=== PATIENT | male | born 1960 | race Caucasian/White ===

== ENCOUNTER 2016-06-26 22:50 | Inpatient (IN) | payer OTHER, MEDICAID ==
[2016-06-26] MEDS ORDERED: NS 1,000 ML IV ONE (22:53)
[2016-06-26] MEDS ORDERED: MAGNESIUM SULF 2 GM/WATER 50 ML IV ONE (22:54)
[2016-06-26] MEDS ORDERED: methylPREDNISolone SOD SUCC 125 MG/2 ML VIAL IVP ONE (22:54)
[2016-06-26] MEDS ORDERED: IPRATROPIUM/ALBUTEROL 3 ML DEYVIAL IH ONE (22:54)
[2016-06-26] MEDS ORDERED: ONDANSETRON 4 MG/2 ML VIAL ONE ×2 (22:54→22:55)
[2016-06-26] MEDS ORDERED: IPRATROPIUM/ALBUTEROL 3 ML DEYVIAL ONE (22:54)
--- NOTE | 2016-06-26 22:58 | EDPHY ---
H & P HPI/ROS: HPI CHIEF COMPLAINT: Respiratory distress, room air saturation 50% HISTORY OF PRESENT ILLNESS: This patient very pleasant 56-year-old male he does have significant past medical history for COPD, wears 4 L nasal cannula, he presents to the emergency room by EMS in respiratory distress. Upon arrival he is breathing 40 times per minute, he has 1 word dyspnea, very little air movement, his oxygen saturation on 4 L nasal cannula is 80%. Room air sat 50%. Denies chest pain. States that he got short of breath earlier today. When EMS arrived he was in respiratory distress tripod position, 50% room air sad. In route they gave him multiple breathing treatments and brought him here to the emergency room. denies fever. does endorse nausea with vomiting. Past Medical History:COPD on 4 L nasal cannula, and states COPD, diastolic heart failure, diabetes, schizophrenia, liver cirrhosis, hypoxic respiratory failure, hypercarbic respiratory failure Social History: Denies daily use of drugs alcohol tobacco products Family History: noncontributory ROS REVIEW OF SYSTEMS: A comprehensive 10 point review of systems is otherwise negative aside from elements mentioned in the history of present illness. Exam Constitutional Respiratory distress, triage nursing summary reviewed, vital signs reviewed, awake/alert. (oxygen saturation noted to be 80%) Eyes normal conjunctivae and sclera, EOMI, PERRLA. HENT normal inspection, atraumatic, moist mucus membranes, no epistaxis, neck supple/ no meningismus, no raccoon eyes. Respiratory Severely diminished breath sounds bilaterally, little air movement, respiratory distress, tachypneic in the 40s, Cardiovascular rate normal, regular rhythm, no murmur, no edema, distal pulses normal. Gastrointestinal soft, non-tender, no rebound, no guarding, normal bowel sounds, no distension, no pulsatile mass. Genitourinary no CVA tenderness. Musculoskeletal no midline vertebral tenderness, full range of motion, no calf swelling, no tenderness of extremities, no meningismus, good pulses, neurovascularly intact. Skin pink, warm, & dry, no rash, skin atraumatic. Neurologic awake, alert and oriented x 3, AAOx3, moves all 4 extremities equally, motor intact, sensory intact, CN II-XII intact, normal cerebellar, normal vision, normal speech. Psychiatric normal mood/affect. Heme/Lymph/Immune no lymphadenopathy. Differential Diagnosis: Includes but is not limited to in a particular order, COPD exacerbation, pneumonia, pulmonary embolism, reactive airway disease Medical Decision Making: This patient had an IV established obtain blood work, patient had a chest x-ray, patient be placed on full face BiPAP will obtain EEG , lactic acid, blood cultures, he received fluid bolus. He received Solu-Medrol , IV Levaquin, IV magnesium will closely monitor for respiratory failure. Re-evaluation: Critical Care: Total Critical Care Time Spent Managing this Patient: 65 minutes Minutes. This time was spent Exclusively with this patient. This Care was exclusive of procedures. The Organ System/life at risk was respiratory This Patient was in Critical Condition because impending respiratory failure, respiratory distress 2359: re-evaluation at this time this patient is resting comfortably. He feels much better after BiPAP, and breathing treatment. He has received Solu- Medrol by EMS, magnesium by Mauricio, IV Levaquin. His chest x-ray been reviewed shows no acute pneumonia. Blood work reviewed, ABG reviewed he does have a pCO2 of 73 however his pH is 7.27. Most likely acute acidosis from elevated pCO2 however when I trend his pCO2 he is much higher. He is much more comfortable now after on BiPAP and multiple nebs. He would like to come off BiPAP I will attempt to wean him off BiPAP and placed on 4 L nasal cannula which is his home O2 baseline. Spoke with Dr. Powell the hospitalist service who agrees to admit this patient. Given the patient's renal BiPAP I feel that he can go to a PCU bed. EKG interpretation by me on record in [facility]. Impression time of EKG is 08/09/1941, this is sinus tachycardia rate of 98, there is right bundle- branch block present. PVC present. Otherwise I do not appreciate acute ischemia. Specifically no ST elevation. 2359: At this time this patient is hemodynamically stable in no acute distress. Safe for admission to PCU. Source: Patient, EMS - Medical/Surgical History Hx Asthma: No Hx Chronic Respiratory Disease: Yes Hx Diabetes: Yes Hx Cardiac Disease: Yes Hx Renal Disease: No Hx Cirrhosis: No Hx Alcoholism: No Hx HIV/AIDS: No Hx Splenectomy or Spleen Trauma: No Other PMH: EMPHYSEMA. PARANOID SCHIZAPHRENIC. DM II. HTN, CHF - Social History Smoking Status: Former smoker Constitutional: Initial Vital Signs O2 Sat (%) 95 02/04/17 22:53 O2 Delivery Mode Simple Mask O2 (L/minute) 6 Allergies/Adverse Reactions: No Known Allergies Allergy (Verified 03/25/16 10:49) Home Medications: Medication Instructions Recorded Furosemide [Lasix 20 MG (*)] 20 mg PO DAILY 10/30/15 Lisinopril [Zestril 20 mg (*)] 20 mg PO DAILY@12 10/30/15 metFORMIN HCL [Glucophage 500 mg 500 mg PO BIDMEAL 10/30/15 (*)] Albuterol [Ventolin Hfa Inhaler] 2 puffs IH Q4 PRN 12/04/15 Fluphenazine Decanoate 12.5mg 12.5 mg IM Q14D 12/05/15 Aspirin [Aspirin 81mg (*)] 81 mg PO DAILY #30 tab 03/29/16 Budesonide/Formoterol 160/4.5 2 puffs IH BID #1 mdi 03/29/16 [Symbicort 160-4.5 Mcg Inh (*)] predniSONE 40 mg PO DAILY #21 tablet 03/29/16 Medical Decision Making - Data Points Laboratory Results: Laboratory Results 06/26/16 23:15 06/26/16 06/26/16 23:20 23:15 WBC 13.53 H 10^3/uL (3.80-9.50) RBC 4.50 10^6/uL (4.40-6.38) Hgb 14.1 g/dL (13.7-17.5) Hct 42.5 % (40.0-51.0) MCV 94.4 fL (81.5-99.8) MCH 31.3 pg (27.9-34.1) MCHC 33.2 g/dL (32.4-36.7) RDW 12.7 % (11.5-15.2) Plt Count 244 10^3/uL (150-400) MPV 9.6 fL (8.7-11.7) Neut % (Auto) 73.7 % (39.3-74.2) Lymph % (Auto) 14.5 L % (15.0-45.0) Wise % (Auto) 6.5 % (4.5-13.0) Eos % (Auto) 3.0 % (0.6-7.6) Baso % (Auto) 1.4 % (0.3-1.7) Nucleat RBC Rel Count 0.0 % (0.0-0.2) Absolute Neuts (auto) 9.98 H 10^3/uL (1.70-6.50) Absolute Lymphs (auto) 1.96 10^3/uL (1.00-3.00) Absolute Monos (auto) 0.88 H 10^3/uL (0.30-0.80) Absolute Eos (auto) 0.40 10^3/uL (0.03-0.40) Absolute Basos (auto) 0.19 H 10^3/uL (0.02-0.10) Absolute Nucleated RBC 0.00 10^3/uL (0-0.01) Immature Gran % 0.9 % (0.0-1.1) Immature Gran # 0.12 H 10^3/uL (0.00-0.10) PT 13.2 SEC (12.0-15.0) INR 1.01 (0.83-1.16) APTT 24.9 SEC (23.0-38.0) Puncture Site RIGHT RADIAL Patient Temperature 37.0 DEGREES pCO2 73 H* mmHg (34-38) pO2 197 H mmHg (65-75) Total CO2 35 H mEq/L (23-27) ABG pH 7.27 L (7.35-7.45) ABG PO2/FiO2 Ratio 197 RATIO ABG O2 Saturation 99 H % (92-95) ABG Base Excess 3.3 H mEq/L (-2.5-2.5) VBG Lactic Acid 1.0 mmol/L (0.7-2.1) O2 Concentration % 100 % (0-100) Expiratory Pressure 7 Inspiratory Pressure 14 Mode BiPAP YES Sodium Pending Potassium Pending Chloride Pending Carbon Dioxide Pending Bicarbonate 32 H mEq/L (22-26) Anion Gap Pending BUN Pending Creatinine Pending Estimated GFR Pending Glucose Pending Calcium Pending Magnesium Pending Total Bilirubin Pending Conjugated Bilirubin Pending Unconjugated Bilirubin Pending AST Pending ALT Pending Alkaline Phosphatase Pending Creatine Kinase Pending CK-MB (CK-2) Fraction Pending Troponin I Pending NT-Pro-B Natriuret Pep Pending Total Protein Pending Albumin Pending Lipase Pending Medications Given: Discontinued Medications Albuterol/Ipratropium (Duoneb) 3 ml IH EDNOW ONE Stop: 06/26/16 22:55 Last Admin: 06/26/16 23:18 Dose: 6 ml Sodium Chloride (Ns) 1,000 mls @ 0 mls/hr IV ONCE ONE PRN Reason: As Directed Stop: 06/26/16 22:54 Last Admin: 06/26/16 23:16 Dose: 1,000 mls Magnesium Sulfate (Magnesium Sulf 2 Gm (Premix)) 50 mls @ 50 mls/hr IV EDNOW ONE Stop: 06/26/16 23:53 Last Admin: 06/26/16 23:30 Dose: 50 mls Methylprednisolone Sodium Succinate (Solu-Medrol) 125 mg IVP EDNOW ONE Stop: 06/26/16 22:55 Last Admin: 06/26/16 23:17 Dose: Not Given Ondansetron HCl (Zofran) 4 mg IVP EDNOW ONE Stop: 06/26/16 23:17 Last Admin: 06/26/16 23:17 Dose: 4 mg Departure - Departure Disposition: [facility] Inpatient Acute Clinical Impression: Respiratory distress Condition: Fair
[2016-06-26] MEDS ORDERED: ONDANSETRON 4 MG/2 ML VIAL IVP ONE (23:16)
--- NOTE | 2016-06-26 23:25 | DX ---
Portable AP Upright Chest, 2 Views, at 11:07 p.m. Clinical History: 56-year-old male in the ED with chest pain. Comparison Studies: Chest radiography dated March 26, 2016, and CT angiography of the chest dated 2015. Findings: The lungs remain hyperexpanded. Oxygen tubing is in place. The cardiac and mediastinal silh ouette is normal in size. There are old healed right 9th and 10th rib fracture deformities. There is no focal infiltrate, pleural effusion, peripheral interstitial edema, or pneumothorax. Impression: No acute abnormality, or substantial change from March 26, 2016.
[2016-06-26 23:32] LABS: BASE EXCESS 3.3 mEq/L (-2.5-2.5); BICARBONATE 32 mEq/L (22-26); MEASURED OXYGEN SATURATION 99 % (92-95); PO2 197 mmHg (65-75); TCO2 35 mEq/L (23-27)
[2016-06-26 23:36] LABS: % IMMATURE GRANULYOCYTES 0.9 % (0.0-1.1); ABSOLUTE IMMATURE GRANULOCYTES 0.12 10^3/uL (0.00-0.10); ADD DIFF? NO; ADD MORPH? NO; ADD SCAN? NO; ATYPICAL LYMPHOCYTE FLAG 0 (0-99); FRAGMENT RBC FLAG 0 (0-99); HEMATOCRIT 42.5 % (40.0-51.0); HEMOGLOBIN 14.1 g/dL (13.7-17.5); LEFT SHIFT FLG 0 (0-99); LIPEMIA HEMOLYSIS FLAG 80 (0-99); MEAN CELL HEMOGLOBIN 31.3 pg (27.9-34.1); MEAN CELL HEMOGLOBIN CONCENTR. 33.2 g/dL (32.4-36.7); MEAN CELL VOLUME 94.4 fL (81.5-99.8); MEAN PLATELET VOLUME 9.6 fL (8.7-11.7); PLATELET CLUMPS FLAG 10 (0-99); PLATELET COUNT 244 10^3/uL (150-400); RED CELL DISTRIBUTION WIDTH 12.7 % (11.5-15.2)
[2016-06-26 23:38] LABS: BIPAP YES; PCO2 73 mmHg (34-38)
[2016-06-26 23:39] LABS: EXP PRESSURE 7; INSP PRESSURE 14; O2 CONCENTRATIION 100 % (0-100); OXYGEN BLEED 50; P/F RATIO 197 RATIO
--- NOTE | 2016-06-26 23:44 | CPEKG ---
Heart Rate: 98 RR Interval: 612 P-R Interval: 176 QRSD Interval: 138 QT Interval: 400 QTC Interval: 511 P Maxton: 81 QRS Maxton: -82 T Wave Maxton: 87 EKG Severity - ABNORMAL ECG - EKG Impression: SINUS TACHYCARDIA EKG Impression: VENTRICULAR PREMATURE COMPLEX EKG Impression: NONSPECIFIC IVCD WITH LAD Electronically Signed By: Gwyn Kebede 27-Jun-2016 22:22:51
[2016-06-26 23:54] LABS: APTT 24.9 SEC (23.0-38.0); INR 1.01 (0.83-1.16); PROTIME(PATIENT) 13.2 SEC (12.0-15.0)
[2016-06-27 00:28] LABS: ALANINE AMINOTRANSFERASE 49 IU/L (21-72); ALBUMIN 4.1 g/dL (3.5-5.0); ALKALINE PHOSPHATASE 55 IU/L (38-126); ANION GAP 12 mEq/L (8-16); ASPARTATE AMINOTRANSFERASE 32 IU/L (17-59); BILIRUBIN,TOTAL 0.6 mg/dL (0.1-1.4); BILIRUBIN-CONJUGATED 0.4 mg/dL (0.0-0.5); BILIRUBIN-UNCONJUGATED 0.2 mg/dL (0.0-1.1); CALCIUM 9.6 mg/dL (8.5-10.4); CARBON DIOXIDE 36 mEq/l (22-31); CHLORIDE 96 mEq/L (97-110); CREATININE 0.7 mg/dL (0.7-1.3); GLOMERULAR FILTRATION RATE > 60; GLUCOSE 253 mg/dL (70-100); MAGNESIUM 1.6 mg/dL (1.6-2.3); POTASSIUM 4.5 mEq/L (3.5-5.2); SODIUM 144 mEq/L (134-144); TOTAL PROTEIN 7.1 g/dL (6.3-8.2)
[2016-06-27 00:40] LABS: TROPONIN I 0.018 ng/mL (0-0.034)
[2016-06-27] MEDS ORDERED: TEMAZEPAM 15 MG CAP PO PRN (00:43)
[2016-06-27] MEDS ORDERED: ACETAMINOPHEN 325 MG TAB PO PRN (00:43)
[2016-06-27] MEDS ORDERED: oxyCODONE IR 5 MG TAB PO PRN (00:43)
[2016-06-27] MEDS ORDERED: ONDANSETRON 4 MG/2 ML VIAL IVP PRN (00:43)
[2016-06-27] MEDS ORDERED: ALBUTEROL 3 ML DEYVIAL IH PRN (00:43)
[2016-06-27] MEDS ORDERED: ONDANSETRON DISINTEGRATING 4 MG TAB PO PRN (00:43)
[2016-06-27] MEDS ORDERED: PROMETHAZINE HCL 25 MG/ML INJ IVP PRN (00:43)
[2016-06-27 00:48] LABS: CK-MB INTERPRETATION POSITIVE (NEGATIVE)
[2016-06-27] MEDS ORDERED: D50W 25 GM/50 ML SYR IVP PRN (00:54)
--- NOTE | 2016-06-27 02:01 | GHP ---
[f rep st] HISTORY AND PHYSICAL DATE OF ADMISSION: 06/26/2016 DATE OF EVALUATION: 06/26/2016 CHIEF COMPLAINT: Shortness of breath. HISTORY OF PRESENT ILLNESS: This is a 56-year-old man with a history of severe oxygen-dependent COPD, who presents with shortness of breath. This started acutely today. He has had no cough. He has no chest pain. This feels like his previous COPD exacerbation. He was initially found by EMS. He had a room air saturation of 50%. In the emergency department, he has had breathing treatments and feels much better than when he initially presented. PAST MEDICAL/SURGICAL HISTORY: 1. Diastolic congestive heart failure with preserved EF. 2. COPD with chronic hypoxic and hypercarbic respiratory failure, on 4 L of oxygen at baseline. 3. Diabetes mellitus type 2. 4. Hypertension. 5. Cirrhosis. 6. Schizophrenia. 7. Hospitalizations for acute encephalopathy, and respiratory failure. MEDICATIONS: Please see medication reconciliation. ALLERGIES: None. SOCIAL HISTORY: He tells me he is not smoking. He lives independently. FAMILY HISTORY: No COPD. REVIEW OF SYSTEMS: A 10-point review of systems is conducted and is negative, except per HPI. PHYSICAL EXAM: VITAL SIGNS: Blood pressure 186/121, heart rate is 100, respiration rate about 25, saturating at 96% on 3 L via simple mask when I am seeing him, temperature is 36.6. GENERAL: The patient is a pleasant man, lying on his side, somewhat withdrawn, who appears in mild respiratory distress. HEENT: Shows him to have a simple mask on. CARDIOVASCULAR: A regular rate and rhythm. No murmurs, rubs, or gallops. PULMONARY: Shows him to be in mild respiratory distress. He is speaking in a few-word sentences. He has markedly diminished breath sounds bilaterally, more diminished on the left than the right. ABDOMEN: Soft, nontender, nondistended. SKIN: No rash. : No Guy. NEUROLOGIC: Shows him to be alert and oriented x3. He is moving all extremities. PSYCHIATRIC: Normal mood and affect. LABS: White count is 13.5. INR is 1. ABG shows him to have a pH of 7.27, pCO2 of 73, pO2 of 197. Chemistry shows a glucose of 253, bicarb of 36. DATA: 1. I discussed this with Dr. Collier. We will admit to step-down unit. 2. Chest x-ray, which I personally reviewed and interpreted, shows hyperexpanded lung chapman consistent with COPD. There is nothing acute. 3. EKG, which I personally reviewed and interpreted shows sinus tachycardia. He has a right bundle branch block. This has not significantly changed from his previous. IMPRESSION AND PLAN: A 56-year-old male with acute on chronic respiratory failure due to the chronic obstructive pulmonary disease. 1. COPD exacerbation with acute on chronic respiratory failure: I considered PE that was examined on presentation, and much more consistent with COPD exacerbation. He has significantly improved in the ED. We will continue treatments with Levaquin, steroids, and nebulizers. We will monitor him very closely in the step-down unit. I do not think he will need intubation; however , he would like to be intubated if necessary. My interpretation of his gases is a mild acute on chronic respiratory acidosis. I reviewed his old gases as well. 2. Diabetes mellitus type 2: We will monitor his blood sugars and start sliding-scale insulin. 3. Hypertension: We will continue his antihypertensives when those are reconciled. Blood pressure status has improved from his initial hypertension. 4. Schizophrenia: We will need to reconcile his medicines and see what he is currently taking. We will continue these. He currently appears comfortable and oriented without clear hallucinations. 5. Code status: He tells me that he would like to be full code, though I see that he was previously DNR. 6. VTE risk: He is moderate to high. We will give him Lovenox. /[id number]/MODL MTDD
[2016-06-27 06:21] LABS: % IMMATURE GRANULYOCYTES 0.4 % (0.0-1.1); ABSOLUTE IMMATURE GRANULOCYTES 0.05 10^3/uL (0.00-0.10); ADD DIFF? NO; ADD MORPH? NO; ADD SCAN? NO; ATYPICAL LYMPHOCYTE FLAG 0 (0-99); FRAGMENT RBC FLAG 0 (0-99); HEMATOCRIT 38.8 % (40.0-51.0); HEMOGLOBIN 12.6 g/dL (13.7-17.5); LEFT SHIFT FLG 10 (0-99); LIPEMIA HEMOLYSIS FLAG 80 (0-99); MEAN CELL HEMOGLOBIN 30.7 pg (27.9-34.1); MEAN CELL HEMOGLOBIN CONCENTR. 32.5 g/dL (32.4-36.7); MEAN CELL VOLUME 94.6 fL (81.5-99.8); MEAN PLATELET VOLUME 9.7 fL (8.7-11.7); PLATELET CLUMPS FLAG 0 (0-99); PLATELET COUNT 190 10^3/uL (150-400); RED CELL DISTRIBUTION WIDTH 12.7 % (11.5-15.2)
[2016-06-27 06:33] LABS: ANION GAP 8 mEq/L (8-16); CALCIUM 8.8 mg/dL (8.5-10.4); CARBON DIOXIDE 32 mEq/l (22-31); CHLORIDE 100 mEq/L (97-110); CREATININE 0.6 mg/dL (0.7-1.3); GLOMERULAR FILTRATION RATE > 60; GLUCOSE 229 mg/dL (70-100); SODIUM 140 mEq/L (134-144)
[2016-06-27] MEDS: IPRATROPIUM/ALBUTEROL 3 ML DEYVIAL IH SCH ×4 (06:43→20:21)
[2016-06-27] MEDS ORDERED: predniSONE 20 MG TAB PO SCH (09:00)
[2016-06-27] MEDS: ENOXAPARIN 40 MG/0.4 ML SYR SC SCH (09:12)
[2016-06-27] MEDS: INSULIN LISPRO 100 UNIT/ML SC SCH ×3 (09:13→18:14)
[2016-06-27] MEDS: ASPIRIN 81 MG CHEWABLE TAB PO SCH (10:38)
[2016-06-27 12:21] LABS: GLUCOSE 327 mg/dL (70-100)
--- NOTE | 2016-06-27 14:27 | HOSPPROG ---
Hospitalist Progress Note Assessment/Plan: #COPD exacerbation: suspect due to viral illness (he reports fevers, sweats). Did not run out of oxygen -decrease pred to 40mg with hyperglycemia. LULÚ Paul. Baseline O2 at home is 4 L. Check influenza #Schizophrenia -depot shot tomorrow #Compensated diastolic HF: BP at [place]. Resume Lasix and Lisinopril #Hyperglycemia: getting pred. Lower dose to 40 and check A1c #Benign HTN: cont home meds #Leukocytosis: due to prednisone #DVT ppx: Lovenox #Diet: regular #Disp: DC tomorrow if clinically improved Subjective: breathing improved Objective: Vital Signs Temp Pulse Resp BP Pulse Ox 36.4 C 87 16 121/77 H 93 06/27/16 10:27 06/27/16 12:25 06/27/16 12:25 06/27/16 10:27 06/27/16 12:25 Laboratory Results 06/27/16 05:50 06/27/16 11:55 06/26/16 06/27/16 06/28/16 05:59 05:59 05:59 Intake Total 1000 Output Total 820 Balance 1000 -820 PT 13.2 SEC (12.0-15.0) 06/26/16 23:15 INR 1.01 (0.83-1.16) 06/26/16 23:15 - Physical Exam Constitutional: no apparent distress Eyes: PERRL Ears, Nose, Mouth, Throat: moist mucous membranes, hearing normal Cardiovascular: regular rate and rhythym, no murmur, rub, or gallop Respiratory: reduced air movement (poor air movement, exp wheezes) Gastrointestinal: normoactive bowel sounds Genitourinary: no bladder fullness Skin: warm Musculoskeletal: full muscle strength Neurologic: AAOx3 Psychiatric: interacting appropriately ICD10 Worksheet Patient Problems: Problems Problem Status Diagnosed Chronic obstructive pulmonary disease with acute exacerbation Acute Respiratory distress Acute Sepsis Acute Acidosis Acute Acute exacerbation of congestive heart failure Acute Acute respiratory failure Acute CHF (congestive heart failure) Acute COPD (chronic obstructive pulmonary disease) Acute COPD (chronic obstructive pulmonary disease) with acute bronchitis Acute COPD exacerbation Acute Chronic Disease Mgmt/Transitional Care Acute Dehydration Acute Elevated troponin Acute Hypercapnic respiratory failure Acute Hypothermia Acute Hypoxia Acute Tobacco abuse Acute
[2016-06-28] LABS: GLUCOSE 356 mg/dL (70-100)
[2016-06-28 04:43] LABS: HEMOGLOBIN A1C 7.1 % (4.0-6.0)
[2016-06-28] MEDS: IPRATROPIUM/ALBUTEROL 3 ML DEYVIAL IH SCH ×2 (05:02→12:06)
[2016-06-28 05:29] LABS: HEMATOCRIT 35.2 % (40.0-51.0); HEMOGLOBIN 11.9 g/dL (13.7-17.5); MEAN CELL HEMOGLOBIN 31.4 pg (27.9-34.1); MEAN CELL HEMOGLOBIN CONCENTR. 33.8 g/dL (32.4-36.7); MEAN CELL VOLUME 92.9 fL (81.5-99.8); RED BLOOD CELL COUNT 3.79 10^6/uL (4.40-6.38); RED CELL DISTRIBUTION WIDTH 12.6 % (11.5-15.2)
[2016-06-28 06:01] LABS: ANION GAP 7 mEq/L (8-16); CALCIUM 8.2 mg/dL (8.5-10.4); CARBON DIOXIDE 34 mEq/l (22-31); CHLORIDE 100 mEq/L (97-110); CREATININE 0.7 mg/dL (0.7-1.3); GLOMERULAR FILTRATION RATE > 60; GLUCOSE 165 mg/dL (70-100); POTASSIUM 4.3 mEq/L (3.5-5.2); SODIUM 141 mEq/L (134-144)
[2016-06-28 07:51] VITALS: BP 122/84; TEMP 98.3
[2016-06-28] MEDS: INSULIN LISPRO 100 UNIT/ML SC SCH (08:57)
[2016-06-28] MEDS: ASPIRIN 81 MG CHEWABLE TAB PO SCH (08:58)
[2016-06-28] MEDS ORDERED: FLUPHENAZINE DECANOATE 25 MG/ML 5 ML VIAL IM SCH (09:00)
[2016-06-28] MEDS ORDERED: LISINOPRIL 20 MG TAB PO SCH (09:00)
[2016-06-28] MEDS ORDERED: predniSONE 20 MG TAB PO SCH (09:00)
[2016-06-28] MEDS ORDERED: FUROSEMIDE 20 MG TAB PO SCH (09:00)
--- NOTE | 2016-06-28 09:44 | PDDCSUM ---
Discharge Summary Discharge Summary: Dates of service: 06/27-06/28/16 Dc diagnosis: # acute on chronic copd # acute on chronic respiratory failure # schizophrenia # DM type 2 # htn consultations/procedures: none HPI: 56 yo M w/ hx of copd and o2 non compliance admitted with worsening resp status in setting of copd with acute exacerbation # acute on chronic hypoxic respiratory failure: at baseline on 4L of o2, presented with o2 sats in the 50s on RA, 80% on his usual 4L. He denies being non compliant with his o2. No e/o PNA, given rapid improvement felt to be unlikely PE. Likely 2/2 copd exacerbation as next # acute on chronic copd: likely acute exacerbation 2/2 viral illness and turned around quicker than expected with scheduled nebs, prednisone and abx. Will dc on 2 more days of prednisone as well as a short course of levofloxacin # schizophrenia: on depot antipsychotic injections, continued # dm2/htn: continue op meds Dc home in good condition f[facility] Meds: see EHR, new meds prednisone x 2 days, levofloxacin x 4 days > 35 min spent in dc of patient more than half in face to face counseling regarding f/u care plans
[2016-06-28] MEDS: ENOXAPARIN 40 MG/0.4 ML SYR SC SCH (10:12)
[2016-06-28 12:13] VITALS: PULSE 88; RESP 18; O2SAT 97
== END 2016-06-28 13:05 | disposition home or self-care (01) | DRG 190 ==
LOC: EDUNIT# → F2N 06-27 01:08 → F2W 06-27 10:22
PROVIDERS: ADMIT Student in an Organized Health Care Education/Training Program; ATTEND Student in an Organized Health Care Education/Training Program
DX: J44.1 Chronic obstructive pulmonary disease with (acute) exacerbation (principal); J96.21 Acute and chronic respiratory failure with hypoxia; F20.9 Schizophrenia, unspecified; E11.9 Type 2 diabetes mellitus without complications; I10 Essential (primary) hypertension; Z91.19 Patient's noncompliance with other medical treatment and regimen; Z87.891 Personal history of nicotine dependence; Z99.81 Dependence on supplemental oxygen
CPT/HCPCS: 82947-QW; 96374; 97165-GO; G8987-GO-CJ; G8988-GO-CI; J1650; J1815; J1956; J2405; J2680

== ENCOUNTER 2016-11-02 15:29 | Inpatient (IN) | payer OTHER, MEDICAID ==
[2016-11-02] MEDS ORDERED: IPRATROPIUM/ALBUTEROL 3 ML DEYVIAL IH ONE (15:42)
--- NOTE | 2016-11-02 15:43 | EDPHY ---
H & P Time Seen by Provider: 11/02/16 15:30 HPI/ROS: CHIEF COMPLAINT: Shortness of breath HISTORY OF PRESENT ILLNESS: The patient is a 56-year-old homeless man with a history of schizophrenia, chronic COPD on 4 L of oxygen at baseline as well as type 2 diabetes and hypertension. He called 911 today because he feels short of breath. He used inhaler 3 times today. When paramedics arrived he was breathing 40 times per minute. They administered a long-acting neb and Solu- Medrol. He states that he is feeling somewhat better. He denies recent fevers or cough. He denies abdominal pain. He denies chest pain. He denies any cardiac history. REVIEW OF SYSTEMS: Constitutional: denies: chills, fever, recent illness, recent injury EENTM: denies: blurred vision, double vision, nose congestion Respiratory: See HPI Cardiac: denies: chest pain, irregular heart rate, lightheadedness, palpitations Gastrointestinal/Abdominal: denies: abdominal pain, diarrhea, nausea, vomiting, blood streaked stools Genitourinary: denies: dysuria, frequency, hematuria, pain Musculoskeletal: denies: joint pain, muscle pain Skin: denies: lesions, rash, jaundice, bruising Neurological: denies: headache, numbness, paresthesia, tingling, dizziness, weakness Hematologic/Lymphatic: denies: blood clots, easy bleeding, easy bruising Immunologic/allergic: denies: HIV/AIDS, transplant EXAM: GENERAL: Well-appearing, well-nourished and in no acute distress. HEAD: Atraumatic, normocephalic. EYES: Pupils equal round and reactive to light, extraocular movements intact, sclera anicteric, conjunctiva are normal. ENT: TMs normal, nares patent, oropharynx clear without exudates. Moist mucous membranes. NECK: Normal range of motion, supple without lymphadenopathy or JVD. LUNGS: Bilateral rhonchi on inhalation, minimal wheezing HEART: Regular rate and rhythm without murmurs, rubs or gallops. ABDOMEN: Soft, nontender, normoactive bowel sounds. No guarding, no rebound. No masses appreciated. BACK: No CVA tenderness, no spinal tenderness, step-offs or deformities EXTREMITIES: Normal range of motion, no pitting or edema. No clubbing or cyanosis. NEUROLOGICAL: Cranial nerves II through XII grossly intact. Normal speech, normal gait. 5/5 strength, normal movement in all extremities, normal sensation PSYCH: Normal mood, normal affect. SKIN: Warm, dry, normal turgor, no visible rashes or lesions. Source: Patient Exam Limitations: No limitations - Medical/Surgical History Hx Asthma: No Hx Chronic Respiratory Disease: Yes Hx Diabetes: Yes Hx Cardiac Disease: Yes Hx Renal Disease: No Hx Cirrhosis: No Hx Alcoholism: No Hx HIV/AIDS: No Hx Splenectomy or Spleen Trauma: No Other PMH: EMPHYSEMA. PARANOID SCHIZAPHRENIC. DM II. HTN, CHF - Family History Significant Family History: No pertinent family hx - Social History Smoking Status: Former smoker Alcohol Use: Sober Drug Use: None Constitutional: Initial Vital Signs Temperature (C) 36.7 C 11/02/16 15:45 Heart Rate 102 H 11/02/16 15:45 Respiratory Rate 36 H 11/02/16 15:45 Blood Pressure 102/56 L 11/02/16 15:45 O2 Sat (%) 85 L 11/02/16 15:45 O2 Delivery Mode Bi-Pap O2 (L/minute) 6 Allergies/Adverse Reactions: No Known Allergies Allergy (Verified 03/25/16 10:49) Home Medications: Medication Instructions Recorded Furosemide [Lasix 20 MG (*)] 20 mg PO DAILY 10/30/15 Lisinopril [Zestril 20 mg (*)] 20 mg PO DAILY 10/30/15 Albuterol [Ventolin Hfa Inhaler] 2 puffs IH Q4 PRN 12/04/15 Aspirin [Aspirin 81mg (*)] 81 mg PO DAILY #30 tab 03/29/16 Metformin HCl [Metformin 1000 mg] 1,000 mg PO BIDMEAL 06/27/16 Tiotropium Inhaler [Spiriva 18 mcg IH HS 06/27/16 Handihaler] Acetaminophen [Tylenol 325mg (*)] 650 mg PO Q4HRS PRN #0 tab 06/28/16 Medical Decision Making - Diagnostics EKG Interpretation: An EKG obtained and was read and documented in trace view. Please see trace view for full reading and report. Sinus rhythm, right bundle branch block unchanged from previous Imaging: Discussed imaging studies w/ bandoleer packer Radiologist Procedures: Procedure: Central line placement. Indication: Sepsis and hypotension. Verbal informed consent was obtained, with the risks explained to include but not be limited to bleeding, infection, and collapsed lung. A timeout was observed and patients identity and correct procedure location confirmed. Full maximal sterile barrier technique was uses including cap, gown, sterile gloves, large sheet, hand washing and chlorhexidine prep. The area anesthetized with 1 % lidocaine. The right IJ was punctured with a 19 gauge finder needle, then a triple-lumen was placed using standard Seldinger technique. There were no complications. Blood return low pressure, dark blood. Patient tolerated procedure well. CXR results: Pending. X-ray was interpreted by myself. The procedure was performed by myself. ED Course/Re-evaluation: 4:40 p.m. the patient is saturating 90% on 5 L. His chest x-ray is not yet been taken. 5:15 p.m. the patient is saturating 92% while asleep on his baseline 4 L. His breath sounds improved. His x-ray does not show pneumonia. I will start him on azithromycin for presumed bronchitis. Will also continue the steroids and albuterol. He has renal function has worsened since previous admissions. He does appear clinically dehydrated. We will rehydrate him and then re-evaluate his kidney function. He does not wish to be admitted to the hospital. He tells me that he has accessed oxygen at home. 6:20 p.m. the patient is the becoming increasingly more hypotensive. His map is currently 64 after 2 L of fluid. We will plan for central line. His saturations are now 96% on his baseline 4 L. He is sleeping. His lactate is elevated. This may be secondary to the albuterol. I will proceed at this point was central line and more fluids the and consider pressors and will admit. Patient continued to become hypotensive despite IV fluids. His CVP was 15-20 but he remained hypotensive. The decision to start pressors was made. Differential Diagnosis: Partial list of the Differential diagnosis considered include but were not limited to; COPD exacerbation, sepsis, bronchitis, pneumonia and although unlikely based on the history and physical exam, I also considered urinary tract infection, endocarditis, NV . Critical Care Time: I spent a total of 45 minutes of critical care time in obtaining history, performing a physical exam, bedside monitoring of interventions, collecting and interpreting tests and discussion with consultants but not including time spent performing procedures. - Data Points Laboratory Results: Laboratory Results 11/02/16 13:25 11/02/16 13:25 Microbiology Results: MICROBIOLOGY 11/02/16 16:00 Blood Blood Culture - Preliminary Gram Positive Cocci Clusters 11/02/16 16:00 Blood Blood Panel (PCR) - Final Staph Coagulase Negative Medications Given: Discontinued Medications Albuterol/Ipratropium (Duoneb) 3 ml IH EDNOW ONE Stop: 11/02/16 15:43 Last Admin: 11/02/16 16:15 Dose: 3 ml Azithromycin (Zithromax) 500 mg PO EDNOW ONE PRN Reason: Protocol Stop: 11/02/16 17:15 Last Admin: 11/02/16 18:46 Dose: Not Given Levofloxacin/Dextrose (Levaquin 750 Mg (Premix)) 150 mls @ 100 mls/hr IV EDNOW ONE PRN Reason: Protocol Stop: 11/02/16 18:12 Last Admin: 11/02/16 17:00 Dose: 150 mls Sodium Chloride (Ns) 2,000 mls @ 4,000 mls/hr 30 ml/kg infuse over 30 min ( 2000 ml) IV EDNOW ONE PRN Reason: Protocol Stop: 11/02/16 17:12 Last Admin: 11/02/16 16:58 Dose: 2,000 mls Sodium Chloride (Ns) 1,000 mls @ 0 mls/hr IV ONCE ONE PRN Reason: Wide Open Stop: 11/02/16 18:49 Last Admin: 11/02/16 19:03 Dose: 1,000 mls Norepinephrine/Sodium Chloride (Norepinephrine 8 Mcg/Ml (Premix)) 500 mls @ 0 mls/hr IV EDNOW ONE; Titrate PRN Reason: Protocol Stop: 11/02/16 20:31 Last Admin: 11/02/16 20:34 Dose: 500 mls Sodium Chloride (Ns) 1,000 mls @ 0 mls/hr IV ONCE ONE PRN Reason: Wide Open Stop: 11/02/16 19:51 Last Admin: 11/02/16 21:00 Dose: 1,000 mls Sodium Chloride (Ns) 1,000 mls @ 3,000 mls/hr IV ONCE ONE Stop: 11/02/16 21:35 Last Admin: 06/14/17 00:59 Dose: Not Given Vancomycin HCl 1.25 gm/ (Dextrose) 250 mls @ 166.667 mls/hr IV ONCE ONE Stop: 11/03/16 13:59 Last Admin: 11/03/16 13:02 Dose: 250 mls Methylprednisolone Sodium Succinate (Solu-Medrol) 125 mg IVP ONCE ONE Stop: 11/03/16 02:08 Last Admin: 11/03/16 02:45 Dose: 125 mg Departure - Departure Disposition: [facility] Inpatient Acute Clinical Impression: COPD (chronic obstructive pulmonary disease) with acute bronchitis, Septic shock Acute bronchitis Qualifiers: Bronchitis organism: unspecified organism Qualified Code(s): J20.9 - Acute bronchitis, unspecified Condition: Critical
[2016-11-02 15:48] LABS: % IMMATURE GRANULYOCYTES 0.4 % (0.0-1.1); ABSOLUTE IMMATURE GRANULOCYTES 0.04 10^3/uL (0.00-0.10); ABSOLUTE NRBC COUNT 0.02 10^3/uL (0-0.01); ADD DIFF? NO; ADD MORPH? NO; ADD SCAN? NO; ATYPICAL LYMPHOCYTE FLAG 0 (0-99); FRAGMENT RBC FLAG 20 (0-99); HEMATOCRIT 52.7 % (40.0-51.0); HEMOGLOBIN 15.4 g/dL (13.7-17.5); LEFT SHIFT FLG 0 (0-99); LIPEMIA HEMOLYSIS FLAG 70 (0-99); MEAN CELL HEMOGLOBIN 28.5 pg (27.9-34.1); MEAN CELL HEMOGLOBIN CONCENTR. 29.2 g/dL (32.4-36.7); MEAN CELL VOLUME 97.4 fL (81.5-99.8); MEAN PLATELET VOLUME 10.5 fL (8.7-11.7); NRBC-AUTO% 0.2 % (0.0-0.2); PLATELET CLUMPS FLAG 0 (0-99); PLATELET COUNT 170 10^3/uL (150-400); RED BLOOD CELL COUNT 5.41 10^6/uL (4.40-6.38)
--- NOTE | 2016-11-02 15:53 | CPEKG ---
Heart Rate: 99 RR Interval: 606 P-R Interval: 164 QRSD Interval: 140 QT Interval: 396 QTC Interval: 509 P [place]: 80 QRS [place]: -92 T Wave [place]: 79 EKG Severity - ABNORMAL ECG - EKG Impression: SINUS RHYTHM EKG Impression: RBBB AND LAFB EKG Impression: CONSIDER ANTERIOR INFARCT EKG Impression: UNCHANGED FROM PREVIOUS Electronically Signed By: Dale Bhatia 02-Nov-2016 15:56:09
[2016-11-02 15:58] LABS: ANION GAP 16 mEq/L (8-16); CALCIUM 8.6 mg/dL (8.5-10.4); CARBON DIOXIDE 36 mEq/l (22-31); CHLORIDE 83 mEq/L (97-110); CREATININE 2.4 mg/dL (0.7-1.3); GLOMERULAR FILTRATION RATE 28; GLUCOSE 125 mg/dL (70-100); POTASSIUM 4.1 mEq/L (3.5-5.2); SODIUM 135 mEq/L (134-144)
[2016-11-02 16:07] LABS: APTT 28.9 SEC (23.0-38.0); INR 1.06 (0.83-1.16); PROTIME(PATIENT) 13.7 SEC (12.0-15.0)
[2016-11-02] MEDS ORDERED: NS 2,000 ML IV ONE (16:43)
[2016-11-02 17:05] LABS: LACGHOST ORDER
[2016-11-02] MEDS ORDERED: AZITHROMYCIN 250 MG TAB PO ONE (17:14)
[2016-11-02] MEDS ORDERED: NS 1,000 ML IV ONE ×3 (18:48→21:16)
[2016-11-02] MEDS ORDERED: ONDANSETRON 4 MG/2 ML VIAL IVP PRN (19:28)
[2016-11-02] MEDS ORDERED: ONDANSETRON DISINTEGRATING 4 MG TAB PO PRN (19:28)
[2016-11-02] MEDS ORDERED: ACETAMINOPHEN 325 MG TAB PO PRN (19:28)
[2016-11-02] MEDS ORDERED: HYDROmorphONE/DILAUDID 1 MG/ML SYR IVP PRN (19:28)
[2016-11-02 19:53] LABS: COLOR AMBER; LEUKOCYTE ESTERASE,URINE NEGATIVE (NEGATIVE); NITRITE,URINE NEGATIVE (NEGATIVE)
[2016-11-02 19:57] LABS: MUCUS TRACE /lpf (NONE-1+)
[2016-11-02] MEDS ORDERED: D50W 25 GM/50 ML SYR IVP PRN (20:04)
[2016-11-02 20:30] LABS: ETHANOL SERUM < 10 mg/dL (0-10)
[2016-11-02] MEDS ORDERED: NOREPINEPHRINE/NS 500 ML IV ONE (20:30)
[2016-11-02 20:43] LABS: TROPONIN I 0.166 ng/mL (0-0.034)
--- NOTE | 2016-11-02 20:49 | GHP ---
[f rep st] HISTORY AND PHYSICAL DATE OF ADMISSION: 11/02/2016 HISTORY OF PRESENT ILLNESS: The patient is a pleasant, 56-year-old gentleman, with history of schizophrenia, homelessness, COPD. He called 911 today because he felt short of breath, used his inhaler 3 times today. He was breathing 40 times a minute upon presentation. When I speak to the patient, he is somnolent, but arousable. He says he has been eating poorly, drinking poorly. He denies using alcohol. He says he may have been having some diarrhea. He does have stool on his leg, but he is really not providing much in the way of history. He does not have a history of pulmonary embolism that is known. REVIEW OF SYSTEMS: Complete 10-point review of systems conducted, negative except as noted in the HPI. PAST MEDICAL HISTORY: 1. Diastolic congestive heart failure with preserved EF. 2. Slight hypokinesis of RV with elevated right-sided pressures. 3. COPD, chronic hypoxia and hypercarbic respiratory failure, on 4 L of oxygen at baseline, although he is not compliant. 4. Type 2 diabetes. 5. Hypertension. 6. Cirrhosis. 7. Schizophrenia. 8. Hospitalizations for encephalopathy and respiratory failure. ALLERGIES: None. MEDICATIONS: Tylenol, albuterol, aspirin, Symbicort, fluphenazine, Lasix, lisinopril, metformin, prednisone, tiotropium although this is an old list. SOCIAL HISTORY: Homeless. Unclear if he is still smoking. Denies alcohol. FAMILY HISTORY: Reviewed and unremarkable. PHYSICAL EXAMINATION: VITAL SIGNS: Presenting temp 37, blood pressure 86/46, pulse 94, breathing 20 times a minute, 94% on 6 L. his baseline blood pressures are in the low 100s. GENERAL: No acute distress. Somnolent but arousable. HEENT: Sclerae are anicteric. Oropharynx clear. Mucous membranes are moist. NECK: Supple without lymphadenopathy or JVD. LUNGS: Clear to auscultation bilaterally. HEART: S1, S2. Not tachycardic. ABDOMEN: Soft, nontender, nondistended. LOWER EXTREMITIES: Without edema. Calves are nontender. SKIN: Without rash. EXTREMITIES: His feet look good. There is no pain over his spine. He has stool on his leg. LABORATORY DATA: White count 11, chronic leukocytosis. Hematocrit 52, is greater than his baseline of 35. Platelets are 170,000. INR is 1. Venous lactate was 0.4 when he got here, but it has risen to 2.1. Sodium 135, potassium 4.1, chloride 83, bicarb 86. BUN 46, creatinine 2.4, last values 4 months ago were 18 and 0.7. Glucose 125. UA showed 3-5 red cells, otherwise unremarkable. Chest x-ray, interpreted by me, shows no acute cardiopulmonary disease. EKG, interpreted by me, shows right bundle branch and left anterior fascicular block, these are not new. His EKG is essentially unchanged from prior. I discussed the case with Dr. Dale Bhatia. ASSESSMENT/PLAN: This is a 56-year-old gentleman, who presented with increased work of breathing, and found it was progressive hypotension in the emergency department. He also has acute kidney injury. 1. Hypotension. I believe this is hypovolemic shock. The patient has a poorly functioning, impaired RV on the basis of his chronic obstructive pulmonary disease by echocardiogram last summer, and he is now clinically dry by both history and physical exam and labs. I think this is compatible with hypovolemic shock. We will volume resuscitate him. I think a baseline blood pressure for him is 100. Sepsis is considered. He received levofloxacin in the emergency department. No source of sepsis. I will not continue antibiotics unless he spikes a fever. He has a chronic leukocytosis that is unchanged. 2. I have considered pulmonary embolism. I think at this point in time, I think it is relatively low likelihood. I will not empirically heparinize him. I will follow his blood pressure response and urine output response volume, and will go from there. He received 2500 cc of IV fluid in the emergency department. I have written him for 200 an hour. We are going to place a Guy and repeat a Chem-7 now. 3. Diarrhea. Check Clostridium difficile and a GI panel. 4. Schizophrenia. Continue his medications that have been reconciled. 5. Diabetes. We will put him on insulin sliding scale. 6. Prophylaxis. Pharmacologic prophylaxis is indicated. Start him on t.i.d. subcu heparin. 7. Code status: Full. ADDENDUM: persistently hypotension requiring pressors stat echo ordered 45' crit care time /[id number]/MODL MTDD
--- NOTE | 2016-11-02 21:42 | HOSPPROG ---
Hospitalist Progress Note Assessment/Plan: stat echo essentially unchanged from prior w RVSP in 40's and dilated, slightly hypokinetic RV he will be preload dependent and will therefore aim for goal cvp 15-17 bolus add'l L d/w nursing staff and dr cox Objective: Vital Signs Temp Pulse Resp BP Pulse Ox 35.9 C L 94 18 80/45 L 96 11/02/16 20:30 11/02/16 20:30 11/02/16 20:30 11/02/16 20:30 11/02/16 20:30 11/01/16 11/02/16 11/03/16 05:59 05:59 05:59 Intake Total 4000 Output Total 50 Balance 3950 PT 13.7 SEC (12.0-15.0) 11/02/16 13:25 INR 1.06 (0.83-1.16) 11/02/16 13:25 ICD10 Worksheet Patient Problems: Problems Problem Status Onset Acute bronchitis Acute COPD (chronic obstructive pulmonary disease) with acute bronchitis Acute Septic shock Acute Acidosis Acute Acute exacerbation of congestive heart failure Acute Acute respiratory failure Acute CHF (congestive heart failure) Acute COPD (chronic obstructive pulmonary disease) Acute COPD exacerbation Acute Chronic Disease Mgmt/Transitional Care Acute Chronic obstructive pulmonary disease with acute exacerbation Acute Dehydration Acute Elevated troponin Acute Hypercapnic respiratory failure Acute Hypothermia Acute Hypoxia Acute Respiratory distress Acute Sepsis Acute Tobacco abuse Acute
[2016-11-02 22:11] LABS: ALANINE AMINOTRANSFERASE 55 IU/L (21-72); ALBUMIN 3.3 g/dL (3.5-5.0); ALKALINE PHOSPHATASE 52 IU/L (38-126); ANION GAP 7 mEq/L (8-16); ASPARTATE AMINOTRANSFERASE 55 IU/L (17-59); BILIRUBIN,TOTAL 0.8 mg/dL (0.1-1.4); BILIRUBIN-CONJUGATED 0.7 mg/dL (0.0-0.5); BILIRUBIN-UNCONJUGATED 0.1 mg/dL (0.0-1.1); CARBON DIOXIDE 30 mEq/l (22-31); CHLORIDE 96 mEq/L (97-110); CREATININE 1.7 mg/dL (0.7-1.3); GLOMERULAR FILTRATION RATE 42; GLUCOSE 125 mg/dL (70-100); POTASSIUM 4.9 mEq/L (3.5-5.2); SODIUM 133 mEq/L (134-144); TOTAL PROTEIN 5.3 g/dL (6.3-8.2)
[2016-11-02 22:21] LABS: PCO2 VENOUS 104 mmHg (40-44); PO2 VENOUS 38 mmHg (35-40); TCO2 VENOUS 34 mEq/L (23-27); VEN MEASURED OXYGEN SATURATION 62 % (65-75)
[2016-11-02 22:23] LABS: TROPONIN I 0.176 ng/mL (0-0.034)
[2016-11-02 23:21] LABS: BASE EXCESS -2.5 mEq/L (-2.5-2.5); BICARBONATE 30 mEq/L (22-26); MEASURED OXYGEN SATURATION 92 % (92-95); PO2 75 mmHg (65-75); TCO2 33 mEq/L (23-27)
[2016-11-02 23:22] LABS: MIXED VENOUS O2 SATURATION 71 % (65-75)
[2016-11-02 23:26] LABS: PCO2 97 mmHg (34-38)
[2016-11-03] MEDS: HEPARIN 5,000 UNIT/0.5 ML SYR SC SCH ×4 (00:59→22:16)
[2016-11-03] MEDS: NS 1,000 ML IV SCH ×3 (01:01→06:18)
[2016-11-03 01:32] LABS: BASE EXCESS -0.9 mEq/L (-2.5-2.5); BICARBONATE 31 mEq/L (22-26); MEASURED OXYGEN SATURATION 86 % (92-95); PO2 58 mmHg (65-75); TCO2 33 mEq/L (23-27)
[2016-11-03 01:34] LABS: BIPAP YES; EXP PRESSURE 5; INSP PRESSURE 20; O2 CONCENTRATIION 35 % (0-100); P/F RATIO 166 RATIO
[2016-11-03 01:37] LABS: PCO2 89 mmHg (34-38)
[2016-11-03] MEDS ORDERED: IPRATROPIUM/ALBUTEROL 3 ML DEYVIAL ONE (02:05)
[2016-11-03] MEDS ORDERED: methylPREDNISolone SOD SUCC 125 MG/2 ML VIAL IVP ONE (02:07)
[2016-11-03] MEDS: LORazepam 2 MG/ML INJ IVP PRN ×2 (02:46→22:17)
[2016-11-03] MEDS: NOREPINEPHRINE/NS 500 ML IV SCH ×2 (03:48→06:17)
[2016-11-03 04:18] LABS: BICARBONATE 29 mEq/L (22-26); MEASURED OXYGEN SATURATION 85 % (92-95); TCO2 32 mEq/L (23-27)
[2016-11-03 04:19] LABS: BIPAP YES; O2 CONCENTRATIION 35 % (0-100)
[2016-11-03 04:20] LABS: EXP PRESSURE 5; INSP PRESSURE 16
[2016-11-03 04:21] LABS: BASE EXCESS -1.8 mEq/L (-2.5-2.5); P/F RATIO 169 RATIO; PO2 59 mmHg (65-75)
[2016-11-03 04:23] LABS: PCO2 88 mmHg (34-38)
[2016-11-03] MEDS ORDERED: ALBUTEROL 3 ML DEYVIAL IH PRN (04:29)
[2016-11-03 04:31] LABS: % IMMATURE GRANULYOCYTES 0.5 % (0.0-1.1); ABSOLUTE IMMATURE GRANULOCYTES 0.04 10^3/uL (0.00-0.10); ABSOLUTE NRBC COUNT 0.02 10^3/uL (0-0.01); ADD DIFF? NO; ADD MORPH? NO; ADD SCAN? NO; ATYPICAL LYMPHOCYTE FLAG 0 (0-99); FRAGMENT RBC FLAG 20 (0-99); HEMATOCRIT 45.3 % (40.0-51.0); HEMOGLOBIN 13.3 g/dL (13.7-17.5); LEFT SHIFT FLG 0 (0-99); LIPEMIA HEMOLYSIS FLAG 70 (0-99); MEAN CELL HEMOGLOBIN 28.4 pg (27.9-34.1); MEAN CELL HEMOGLOBIN CONCENTR. 29.4 g/dL (32.4-36.7); MEAN CELL VOLUME 96.6 fL (81.5-99.8); MEAN PLATELET VOLUME 10.4 fL (8.7-11.7); NRBC-AUTO% 0.2 % (0.0-0.2); PLATELET CLUMPS FLAG 0 (0-99); PLATELET COUNT 165 10^3/uL (150-400); RED BLOOD CELL COUNT 4.69 10^6/uL (4.40-6.38); RED CELL DISTRIBUTION WIDTH 17.6 % (11.5-15.2)
[2016-11-03 04:44] LABS: INR 1.19 (0.83-1.16); PROTIME(PATIENT) 15.1 SEC (12.0-15.0)
[2016-11-03 05:04] LABS: ANION GAP 9 mEq/L (8-16); CALCIUM 7.6 mg/dL (8.5-10.4); CARBON DIOXIDE 29 mEq/l (22-31); CHLORIDE 98 mEq/L (97-110); CREATININE 1.4 mg/dL (0.7-1.3); GLOMERULAR FILTRATION RATE 52; GLUCOSE 253 mg/dL (70-100); POTASSIUM 5.1 mEq/L (3.5-5.2); SODIUM 136 mEq/L (134-144)
[2016-11-03 05:15] LABS: TROPONIN I 0.159 ng/mL (0-0.034)
[2016-11-03] MEDS: IPRATROPIUM/ALBUTEROL 3 ML DEYVIAL IH SCH ×4 (05:44→21:32)
[2016-11-03] MEDS: methylPREDNISolone SOD SUCC 125 MG/2 ML VIAL IVP SCH ×3 (06:18→18:23)
--- NOTE | 2016-11-03 08:52 | ECHO ---
[id number] + + [address] : : [place] [address] : : [phone] + Adult Echocardiographic Report + -----+ :Name: CIRILO ALLEN LStudy Date: 11/02/2016 08:57 PM : : Hospital Admission Number: [id number] Location : 251: :: 1960 Gender: Male Height: 74 in : :Age: 56 yrs Race: WH Weight: 150 lb : :Reason For Study: Hypotension/CVP 14 : : BSA: 1.9 meters2 : + -----+ MMode/2D Measurements \T\ Calculations IVSd: 0.59 cm LVIDd: 4.5 cm FS: 47.5 % Ao root diam: 3.6 cm LVPWd: 1.0 cm LVIDs: 2.4 cm EDV(Teich): 94.6 ml LA dimension: 3.5 cm ESV(Teich): 19.9 ml EF(Teich): 79.0 % Normal Measurement Values: + + :LVIDd (3.5-5.7cm) IVSd (0.6-1.1cm) LVPWd (0.6-1.1cm) Aortic Root (2.0-3.7cm)Left Atrium (1.5-4.0cm): :LV Vol(d) (76-115ml) LV Vol(s) (29-48ml) Ejec Fraction (50-65%)PV Kirk (0.6- 1.2m/s) TV Kirk (0.4-1.0m/s) : :MV E Kirk (0.8-1.0m/s)MV A Kirk (0.3-1.0m/s)LVOT Kirk (0.7-1.2m/s) Asc Ao Kirk ( 0.9-1.8m/s) : + + Doppler Measurements \T\ Calculations MV E max kirk: 68.6 cm/sec Ao V2 max: 129.0 cm/sec TR max kirk: 300.0 cm/sec MV A max kirk: 65.2 cm/sec Ao max P.7 mmHg TR max P.0 mmHg MV E/A: 1.1 RAP systole: 10.0 mmHg RVSP(TR): 46.0 mmHg Left Ventricle The left ventricle is normal in size. There is normal left ventricular wall thickness. The left ventricle is hyperdynamic. Flattened septum is consistent with RV pressure/volume overload. Right Ventricle The right ventricle is moderately dilated. A moderator band is seen in the right ventricle. RV systolic function is mildly reduced. Atria The left atrial size is normal. The right atrium is moderately dilated. Mitral Valve The mitral valve is normal. Tricuspid Valve There is mild tricuspid regurgitation. Right ventricular systolic pressure is 46mmHg. There is Doppler evidence for mild pulmonary hypertension. Aortic Valve The aortic valve opens well. There is no aortic stenosis. There is no aortic insufficiency. Pulmonic Valve The pulmonic valve is not well visualized. Great Vessels The aortic root is normal size. Pericardium/Pleural There is no pericardial effusion. Conclusion A complete two-dimensional transthoracic echocardiogram was performed (2D, M-mode, Doppler and color flow Doppler). Compared to the echo of 12/05, no significant change. The left ventricle is hyperdynamic. Flattened septum is consistent with RV pressure/volume overload. Normal LV systolic function The right ventricle is moderately dilated. RV systolic function is mildly reduced. The right atrium is moderately dilated. There is mild tricuspid regurgitation. Right ventricular systolic pressure is 46mmHg. There is Doppler evidence for mild pulmonary hypertension. Final Reading Physician: Dr Kinsey Monaco electronically signed on 11/03/2016 08:50 AM Ordering Physician: Mac San Performed By: Fifi Kincaid, ELIERCS
[2016-11-03 08:54] LABS: BASE EXCESS -1.5 mEq/L (-2.5-2.5); BICARBONATE 28 mEq/L (22-26); MEASURED OXYGEN SATURATION 90 % (92-95); PO2 66 mmHg (65-75); TCO2 30 mEq/L (23-27)
[2016-11-03 09:00] LABS: PCO2 72 mmHg (34-38)
[2016-11-03] MEDS: INSULIN LISPRO 100 UNIT/ML SC SCH ×3 (09:11→18:23)
[2016-11-03] MEDS ORDERED: VANCOMYCIN 1.25 GM in D5W 250 ML IV ONE (12:30)
--- NOTE | 2016-11-03 14:51 | HOSPPROG ---
Hospitalist Progress Note Assessment/Plan: 56 yo homeless man admitted for sepsis and resp failure. Etiology unclear #G+ Bacteremia/Sepsis, etiology unclear -Cont with Vancomycin (started today) -Wean off Pressors -Decrease IVF -Await Identification and sensitivities #Resp Failure, etiology unclear: on Solumedrol -No evidence of Pneumonia or other #Urethral Trauma due to him pulling off cath -May require a Urology consult down the line #Acute Kidney Injury, due to Sepsis and Hypovolemia, improving #Encephalopathy #Agitation #Tobacco Abuse disorder Plan: -Cont mgmt per above -Will provide Ativan -Start Nicotine patch -Keep in ICU Discussed with roofing sales representative during team rounding Subjective: Somewhat confused. Appears clincially improvin. No CP or SB. Still on pressos, blood prssures have improved. Objective: Vital Signs Temp Pulse Resp BP Pulse Ox 37.2 C 96 20 127/82 H 94 11/03/16 12:00 11/03/16 14:00 11/03/16 14:00 11/03/16 14:00 11/03/16 14:00 Laboratory Results 11/03/16 04:15 11/03/16 04:15 11/02/16 11/03/16 11/04/16 05:59 05:59 05:59 Intake Total 8575 Output Total 775 Balance 7800 PT 15.1 SEC (12.0-15.0) H 11/03/16 04:15 INR 1.19 (0.83-1.16) H 11/03/16 04:15 - Physical Exam Constitutional: no apparent distress, appears nourished Eyes: PERRL, EOMI Ears, Nose, Mouth, Throat: moist mucous membranes, hearing normal Cardiovascular: regular rate and rhythym, No JVD Respiratory: no respiratory distress, reduced air movement Gastrointestinal: normoactive bowel sounds, soft, non-tender abdomen Skin: warm, normal color Neurologic: AAOx3 Psychiatric: anxious, poor insight, poor judgement Lymph, Heme, Immunologic: no cervical LAD ICD10 Worksheet Patient Problems: Problems Problem Status Onset Acute bronchitis Acute COPD (chronic obstructive pulmonary disease) with acute bronchitis Acute Septic shock Acute Acidosis Acute Acute exacerbation of congestive heart failure Acute Acute respiratory failure Acute CHF (congestive heart failure) Acute COPD (chronic obstructive pulmonary disease) Acute COPD exacerbation Acute Chronic Disease Mgmt/Transitional Care Acute Chronic obstructive pulmonary disease with acute exacerbation Acute Dehydration Acute Elevated troponin Acute Hypercapnic respiratory failure Acute Hypothermia Acute Hypoxia Acute Respiratory distress Acute Sepsis Acute Tobacco abuse Acute
[2016-11-03] MEDS: NICOTINE 14 MG/24 HR PATCH TD SCH (18:22)
--- NOTE | 2016-11-03 19:51 | GCON ---
[f rep st] CONSULTATION PULMONARY CRITICAL CARE CONSULTATION DATE OF CONSULTATION: 11/03/2016 HISTORY OF PRESENT ILLNESS: The patient is a 56-year-old homeless male with a history of schizophre yajaira and COPD. He called 911 due to shortness of breath, and was in quite distress on arrival, and w as placed on BiPAP. He denies any previous cough or sputum production. No hemoptysis. No fevers, chills or sweats, but does have issues with chronic hypoxemia and homelessness, and maintaining norm al oxygen saturations. In any case, his workup was largely negative, and a chest x-ray showed no in filtrates, but he was placed on BiPAP overnight for severe respiratory acidosis. However, the BiPAP was not working very well, and earlier this morning, he was removed from BiPAP, despite his ominous -looking arterial blood gas, which improved off BiPAP. REVIEW OF SYSTEMS: Otherwise negative. PAST MEDICAL HISTORY: Includes: 1. Diastolic heart failure. 2. COPD, with chronic hypoxemia, and chronic hypercapnic respiratory failure. His baseline oxygen is reportedly at 4 L/minute. 3. Diabetes. 4. Hypertension. 5. Cirrhosis. 6. Schizophrenia. ALLERGIES: None. SOCIAL HISTORY: I believe he is still a smoker. Denies any alcohol. FAMILY HISTORY: Unremarkable. MEDICATIONS: Included Tylenol, DuoNeb, azithromycin, Dilaudid p.r.n., insulin, Solu-Medrol 60 q.6, norepinephrine, sodium chloride. PHYSICAL EXAMINATION: VITAL SIGNS: At the time of my exam, his blood pressure was 142/78, and his Levophed was rapidly being titrated off. Heart rate was 89, respiratory rate of 24, oxygen saturati on was 91% on 4 L nasal cannula. GENERAL APPEARANCE: He was alert, and seemed to be oriented x3, n o apparent distress, and spoke in full sentences without using accessory muscles for breathing. ASHOK NT: Pupils equally round and react to light. Nonicteric and noninjected. Mucous membranes are jt st, without erythema or exudate. NECK: Supple, without adenopathy or jugular vein distention. DON GS: Breath sounds were diminished, but clear to auscultation without wheezing. HEART: Regular rat e and rhythm, without murmurs, rubs, gallops. ABDOMEN: Soft, nontender, nondistended, without hepa tosplenomegaly. EXTREMITIES: Showed no clubbing, cyanosis, or edema. NEUROLOGIC: Grossly nonfoca l. LABORATORY DATA: Includes a chest x-ray, as described above. His white count was 8.8, but a hematocrit was 45, and platelets of 165. His most recent blood gas f rom about 9 o'clock showed a pH of 7.21, a CO2 of 72, oxygen 66, bicarbonate 30, saturation 90%. [facility] metabolic panel was fairly unremarkable, save for a creatinine which was 1.7, down to 1.4. Trop onin was negative. Procalcitonin was 0.2, which would be consistent with bacterial infection. Bloo d cultures are growing Coag-negative staph in 2 bottles. ASSESSMENT AND PLAN: 1. Respiratory failure, with chronic obstructive pulmonary disease exacerbation, for reasons that a re not entirely clear, but may be a bronchitis or simply oxygen noncompliance. He clearly has evide nce of hypoventilation, but is doing well off the ventilator. If he should continue to have difficu lty, we can intubate him or put him on Provera, or put him on doxapram as a short-term solution to m inimize the CO2. In any case, I think continue with his nebs and the systemic steroids. At this po int, it is certainly warranted. 2. Bacteremia. The source here is fairly unclear. It is being reported as a coagulase-negative st aphylococcus, but two bottles positive, as well as the procalcitonin, warrants vancomycin, which he has been given at this time, in addition to his azithromycin for his lungs. 3. Hypotension. I believe he was hypovolemic when he arrived. His Levophed is being rapidly disco ntinued, and likely his improvement in pH is a contributing factor for that as well. I do not see a ny evidence of cardiogenic shock or, in fact, septic shock at this time. 4. A total of about 45 minutes of critical care time was required for this patient with multiorgan fail ure. /[id number]/MODL
[2016-11-04] MEDS: methylPREDNISolone SOD SUCC 125 MG/2 ML VIAL IVP SCH ×2 (01:20→05:31)
[2016-11-04 04:48] LABS: % IMMATURE GRANULYOCYTES 0.6 % (0.0-1.1); ABSOLUTE IMMATURE GRANULOCYTES 0.06 10^3/uL (0.00-0.10); ADD DIFF? NO; ADD MORPH? NO; ADD SCAN? NO; ATYPICAL LYMPHOCYTE FLAG 0 (0-99); FRAGMENT RBC FLAG 20 (0-99); HEMATOCRIT 34.2 % (40.0-51.0); HEMOGLOBIN 10.5 g/dL (13.7-17.5); LEFT SHIFT FLG 10 (0-99); LIPEMIA HEMOLYSIS FLAG 80 (0-99); MEAN CELL HEMOGLOBIN 28.8 pg (27.9-34.1); MEAN CELL HEMOGLOBIN CONCENTR. 30.7 g/dL (32.4-36.7); MEAN PLATELET VOLUME 10.2 fL (8.7-11.7); PLATELET CLUMPS FLAG 10 (0-99); PLATELET COUNT 118 10^3/uL (150-400); RED BLOOD CELL COUNT 3.64 10^6/uL (4.40-6.38); RED CELL DISTRIBUTION WIDTH 18.3 % (11.5-15.2)
[2016-11-04 05:05] LABS: ANION GAP 3 mEq/L (8-16); CALCIUM 8.5 mg/dL (8.5-10.4); CARBON DIOXIDE 32 mEq/l (22-31); CHLORIDE 102 mEq/L (97-110); CREATININE 0.8 mg/dL (0.7-1.3); GLOMERULAR FILTRATION RATE > 60; GLUCOSE 201 mg/dL (70-100); POTASSIUM 4.7 mEq/L (3.5-5.2); SODIUM 137 mEq/L (134-144)
[2016-11-04] MEDS: HEPARIN 5,000 UNIT/0.5 ML SYR SC SCH ×3 (05:28→21:31)
[2016-11-04] MEDS: IPRATROPIUM/ALBUTEROL 3 ML DEYVIAL IH SCH ×3 (05:49→17:12)
[2016-11-04] MEDS: VANCOMYCIN 1.25 GM in D5W 250 ML IV SCH ×2 (08:47→21:31)
[2016-11-04] MEDS: AZITHROMYCIN IV 250 MG in D5W 250 ML IV SCH (08:47)
[2016-11-04] MEDS: NICOTINE 14 MG/24 HR PATCH TD SCH (08:47)
[2016-11-04] MEDS: INSULIN LISPRO 100 UNIT/ML SC SCH ×3 (08:55→18:01)
--- NOTE | 2016-11-04 10:00 | PDINTPN ---
Supply Chain Intern Progress Note Assessment/Plan: Assessment\plan: 56 M with COPD and oxygen dependancy but poor compliance admitted 11/02 with COPD exacerbation, hypotension, and hypercapnic respiratory failure. His ABG showed a pH of 7.1 with a CO2 of 88 despite bipap and several adjustments; yet he was not in distress and awake. Bipap was dc'd and his abg improved, so never needed intubation. Blood cxs grew GPC, yet his BP normalized after IVF. * COPD exacerbation- etiology not clear but compliance likely a factor. He is homeless and it remains uncertain how he gets O2 and maintains. Solumedrol changed to prednisone today. Continue Zithromax for 5 days. Continue Duoneb, O2 prn. * Hypotension- from acidosis, sepsis, volume or all of the above. Now off pressors. Blood cx grew AUTOM[employer]IVE ELECT[employer]ICIAN in 2/2 bottles, so started vancomycin. Procalcitonin never sent, so not likely helpful now. * Hematuria after self-inflicted traumatic barnett removal- spoke with urology who suggested no replacement, since he would likely do it again and continues to urinate. Should he develop urinary retention, could reconsider. * Schizophrenia- need to clarify chronic meds * OK for floor Objective: Vital Signs Temp Pulse Resp BP Pulse Ox 36.8 C 91 23 H 116/62 91 L 11/04/16 08:00 11/04/16 08:00 11/04/16 08:00 11/04/16 08:00 11/04/16 08:00 Laboratory Results 11/04/16 04:35 11/04/16 04:35 11/03/16 11/04/16 11/05/16 05:59 05:59 05:59 Intake Total 8575 3817 Output Total 775 125 Balance 7800 3692 PT 15.1 SEC (12.0-15.0) H 11/03/16 04:15 INR 1.19 (0.83-1.16) H 11/03/16 04:15 Physical Exam - Physical Exam General Appearance: alert, no apparent distress EENT: PERRL/EOMI Neck: supple Respiratory: lungs clear, normal breath sounds, decreased breath sounds, No respiratory distress Cardiac/Chest: regular rate, rhythm, No edema Abdomen: non-tender, soft, No distended Skin: normal color, warm/dry Lymphatic: no adenopathy Extremities: No pedal edema Neuro/Psych: alert, normal mood/affect, oriented x 3, cognition abnormalities ICD10 Worksheet Patient Problems: Problems Problem Status Onset Acute bronchitis Acute COPD (chronic obstructive pulmonary disease) with acute bronchitis Acute Septic shock Acute Acidosis Acute Acute exacerbation of congestive heart failure Acute Acute respiratory failure Acute CHF (congestive heart failure) Acute COPD (chronic obstructive pulmonary disease) Acute COPD exacerbation Acute Chronic Disease Mgmt/Transitional Care Acute Chronic obstructive pulmonary disease with acute exacerbation Acute Dehydration Acute Elevated troponin Acute Hypercapnic respiratory failure Acute Hypothermia Acute Hypoxia Acute Respiratory distress Acute Sepsis Acute Tobacco abuse Acute
[2016-11-04] MEDS ORDERED: INSULIN GLARGINE 100 UNITS/ML SYRINGE SC ONE (12:00)
[2016-11-04] MEDS ORDERED: INSULIN GLARGINE 100 UNIT/ML VIAL SC ONE (12:00)
--- NOTE | 2016-11-04 12:09 | HOSPPROG ---
Hospitalist Progress Note Assessment/Plan: 56 yo man admitted for sepsis and resp failure. Etiology unclear #G+ Bacteremia/Sepsis, etiology unclear -Cont with Vancomycin (started 11/04) -off Pressors -Stop IVF -Await Identification and sensitivities #Resp Failure, and ESCROW AGENT-E -etiology unclear -change Solumedrol to prednisone -continue Azithromycin -No evidence of Pneumonia #Urethral Trauma due to him pulling off cath -bleeding stopped -dont place barnett. He is making good amount of urine. No evidence of retention #Acute Kidney Injury, due to Sepsis and Hypovolemia, resolved #Encephalopathy: unclear baseline, improving. #Agitation, improving #Tobacco Abuse disorder #Hyperglycemia: steroid induced. Cont ISS. Will give Lantus x 1 today. Steroids were decreased today Plan: -ok to transfer out of the ICU Discussed with inside sales specialist during team rounding Subjective: less confused. Feels better. Objective: Vital Signs Temp Pulse Resp BP Pulse Ox 36.4 C 96 27 H 128/80 H 96 11/04/16 12:06 11/04/16 12:00 11/04/16 12:00 11/04/16 12:00 11/04/16 12:00 Laboratory Results 11/04/16 04:35 11/04/16 04:35 11/03/16 11/04/16 11/05/16 05:59 05:59 05:59 Intake Total 8575 3817 Output Total 775 125 Balance 7800 3692 PT 15.1 SEC (12.0-15.0) H 11/03/16 04:15 INR 1.19 (0.83-1.16) H 11/03/16 04:15 - Physical Exam Constitutional: no apparent distress, appears nourished Eyes: PERRL, EOMI Ears, Nose, Mouth, Throat: moist mucous membranes, hearing normal, ears appear normal Cardiovascular: regular rate and rhythym, no murmur, rub, or gallop, No JVD Respiratory: reduced air movement Skin: warm Neurologic: AAOx3 Psychiatric: not anxious, not encephalopathic ICD10 Worksheet Patient Problems: Problems Problem Status Onset Acute bronchitis Acute COPD (chronic obstructive pulmonary disease) with acute bronchitis Acute Septic shock Acute Acidosis Acute Acute exacerbation of congestive heart failure Acute Acute respiratory failure Acute CHF (congestive heart failure) Acute COPD (chronic obstructive pulmonary disease) Acute COPD exacerbation Acute Chronic Disease [facility]/Transitional Care Acute Chronic obstructive pulmonary disease with acute exacerbation Acute Dehydration Acute Elevated troponin Acute Hypercapnic respiratory failure Acute Hypothermia Acute Hypoxia Acute Respiratory distress Acute Sepsis Acute Tobacco abuse Acute
[2016-11-05] MEDS: IPRATROPIUM/ALBUTEROL 3 ML DEYVIAL IH SCH ×4 (00:10→17:04)
[2016-11-05] MEDS: HEPARIN 5,000 UNIT/0.5 ML SYR SC SCH ×3 (04:59→21:06)
[2016-11-05] MEDS: INSULIN LISPRO 100 UNIT/ML SC SCH ×3 (08:29→17:57)
[2016-11-05] MEDS: AZITHROMYCIN IV 250 MG in D5W 250 ML IV SCH (08:33)
[2016-11-05] MEDS ORDERED: ACETAMINOPHEN 325 MG TAB PO PRN (09:12)
[2016-11-05] MEDS ORDERED: ALBUTEROL 200 PUFFS/18 GM MDI IH PRN (09:30)
[2016-11-05] MEDS: VANCOMYCIN 1.25 GM in D5W 250 ML IV SCH (09:38)
[2016-11-05] MEDS: predniSONE 20 MG TAB PO SCH (09:43)
[2016-11-05] MEDS: NICOTINE 14 MG/24 HR PATCH TD SCH (09:52)
--- NOTE | 2016-11-05 12:49 | HOSPPROG ---
Hospitalist Progress Note Assessment/Plan: 56 yo man admitted for sepsis and resp failure. Etiology unclear. This is my first encounter with this pt. Chart reviewed. # NOT G+ Bacteremia/Sepsis, -contaminate -DC Vancomycin (started 11/04) -off Pressors -Stop IVF -Consulted ID, D/W Dr Cardoza #Resp Failure, and COPD -cont prednisone -continue Azithromycin -No evidence of Pneumonia #Urethral Trauma due to him pulling off cath -bleeding stopped -dont place barnett. He is making good amount of urine. No evidence of retention #Acute Kidney Injury, due to Hypovolemia, resolved #Encephalopathy: unclear baseline, improving. #Agitation, improving #Tobacco Abuse disorder #Hyperglycemia: steroid induced. Cont ISS. Plan: -monitor off vanco -official ID consult -unclear etiol for situation -follow close Subjective: Feeling better. No pain. No specific issues. Objective: Vital Signs Temp Pulse Resp BP Pulse Ox 36.6 C 102 H 16 152/93 H 99 11/05/16 11:29 11/05/16 11:29 11/05/16 11:29 11/05/16 11:29 11/05/16 11:29 Laboratory Results 11/04/16 04:35 11/04/16 04:35 11/04/16 11/05/16 11/06/16 05:59 05:59 05:59 Intake Total 3817 850 Output Total 125 Balance 3692 850 PT 15.1 SEC (12.0-15.0) H 11/03/16 04:15 INR 1.19 (0.83-1.16) H 11/03/16 04:15 - Physical Exam Constitutional: no apparent distress, appears nourished, not in pain Eyes: PERRL, anicteric sclera, EOMI Ears, Nose, Mouth, Throat: moist mucous membranes, hearing normal, ears appear normal Cardiovascular: tachycardia, No JVD, No edema Respiratory: no respiratory distress, no rales or rhonchi, reduced air movement Gastrointestinal: No tenderness, No ascites, No guarding Skin: warm, normal color, No erythema Musculoskeletal: normal joint ROM, no joint effusions, generalized weakness Psychiatric: not anxious, not encephalopathic, poor insight, poor judgement, poor memory ICD10 Worksheet Patient Problems: Problems Problem Status Onset Acute respiratory failure Acute Chronic Disease Mgmt/Transitional Care Acute COPD (chronic obstructive pulmonary disease) Acute COPD exacerbation Acute Tobacco abuse Acute Acute exacerbation of congestive heart failure Acute CHF (congestive heart failure) Acute Chronic obstructive pulmonary disease with acute exacerbation Acute Hypoxia Acute Elevated troponin Acute Hypercapnic respiratory failure Acute Acidosis Acute Hypothermia Acute COPD (chronic obstructive pulmonary disease) with acute bronchitis Acute Dehydration Acute Sepsis Acute Respiratory distress Acute Acute bronchitis Acute Septic shock Acute
--- NOTE | 2016-11-05 18:42 | GCON ---
[f rep st] CONSULTATION INFECTIOUS DISEASES REFERRING PHYSICIAN: Meredith Parekh NP REASON FOR REFERRAL: Query sepsis. HISTORY OF PRESENT ILLNESS: Patient is a 56-year-old male who is homeless with schizophrenia and re active airway disease who came to the emergency room by EMS on 11/02/2016. Patient was seen and karolyn luated by hospitalist and emergency room physician there. He called 911 because he felt short of br eath and was breathing 40 times a minute upon presentation. He was alert and oriented with some fanny nolence but he was arousable upon presentation. He stated he had been eating and drinking poorly. He also admitted to having diarrhea. As part of the workup, he was noted to be hypotensive. It was felt to be hypovolemic shock. The patient has poor cardiac function which is demonstrated on echoc ardiogram. He was volume resuscitated and even for a short period of time maintained on a single pr essor. He received Levaquin empirically due to the consideration of sepsis. No source, however, wa s found. He did not spike a fever. He has an underlying chronic leukocytosis that was unchanged. He spent the better part of the 1st day on noninvasive respiratory assistance. His antibiotics were expanded to include vancomycin and azithromycin. Blood cultures were drawn. We are consulted due to positive blood culture, 1/2 sets, with multiple bacteria including Staph hominis, staph epidermid is, and Aerococcus viridans. Patient currently is resting comfortably in his hospital bed. He has no complaints. PAST MEDICAL HISTORY: 1. Congestive heart failure. 2. COPD. 3. Type 2 diabetes. 4. Hypertension. 5. Cirrhosis. 6. Schizophrenia. PAST SURGICAL HISTORY: None noted. ANTIBIOTICS: 1. Vancomycin. 2. Azithromycin. ALLERGIES: No known medical allergies. SOCIAL HISTORY: Patient is homeless. Denies alcohol use. FAMILY HISTORY: Reviewed, noncontributory. REVIEW OF SYSTEMS: Other than that detailed above in the History Of Present Illness, a comprehensiv e 10-system review is negative. PHYSICAL EXAMINATION: VITAL SIGNS: Temperature maximum is 36.9, temperature current is 36.8. Hear t rate is 95. Respiratory rate is 16. Blood pressure is 148/92. GENERAL: The patient is a well-f ormed, well-nourished, older male in no acute distress. He is not toxic in appearance. He is alert but somewhat somnolent. He is in a pleasant demeanor. HEENT: Normocephalic for age. Atraumatic. No scleral icterus. No oral lesion or drainage from the nares. EYES: Lids and conjunctivae are within normal limits. Pupils are equal and round bilaterally. NECK: Supple. No meningismus. DON GS: Clear to auscultation bilaterally. Good effort. HEART: Regular rate and rhythm. No murmur, rub, or gallop noted. SKIN: Warm and dry to the touch. No rash or lesion. MUSCULOSKELETAL: No m uscle belly tenderness is noted. No joint line effusion or arthritis is seen. NEURO: Cranial nerv es 2-12 seem to be intact. Peripheral sensation seems intact in extremities. LABORATORY DATA: Patient has a CBC dated 11/04/2016, shows a white blood cell count of 9.7, hemoglo bin of 10.5, hematocrit of 34.2, and a platelet count of 118. Differential is left shifted with 94% segmented neutrophils. Serum chemistries on November 04 show sodium of 137, potassium 4.7, chloride of 102, bicarbonate of 32, BUN of 33, creatinine 0.8. Urinalysis on 11/02/2016 shows 1-3 white cells per high-power field. Alcohol level on 11/02/2016 was undetectable. MICROBIOLOGIC DATA: Patient has blood cultures dated 11/02/2016, 1/2 sets is growing Staph hominis, Staph epidermidis, and Aerococcus viridans. The other set is negative so far. ASSESSMENT: Shock. Suspect hypovolemic and not septic shock. The patient was acidotic. I suspect he was breathing rapidly secondary to the metabolic acidosis due to the hypovolemia. He has had so me significant volume resuscitation and likely needs more, although this needs to be gently done sec ondary to the underlying cardiac dysfunction. The blood cultures are not indicative of true bactere tevin. Polymicrobial nature of the single set of positive blood cultures is much more indicative of t his being contamination from skin dana rather than true bacteremia. The patient has also been afeb rile and has no deviance from baseline mild leukocytosis. Would, at this point, discontinue the van comycin. The azithromycin may be in play secondary to possible COPD exacerbation. Will leave this antibiotic on for now. PLAN: 1. Discontinue vancomycin. 2. Follow clinical course. /[id number]/MODL
[2016-11-05] MEDS: LORazepam 2 MG/ML INJ IVP PRN (21:21)
[2016-11-06] MEDS: INSULIN LISPRO 100 UNIT/ML SC SCH ×4 (00:23→17:25)
[2016-11-06] MEDS: IPRATROPIUM/ALBUTEROL 3 ML DEYVIAL IH SCH ×4 (04:15→17:00)
[2016-11-06] MEDS: HEPARIN 5,000 UNIT/0.5 ML SYR SC SCH ×3 (05:14→21:37)
--- NOTE | 2016-11-06 08:29 | HOSPPROG ---
Hospitalist Progress Note Assessment/Plan: Patient is a 56 y/o male who presented to the ER after calling 911 for shortness of breath. Today is my first encounter with the patient. Chart reviewed. * concern for bacteremia evaluated by ID/ likely a contaminant *sepsis w associated hypotension on admission treated w pressors resolved *respiratory failure w underlying COPD and bronchits steroids and azithro (5 days total) #3/#5 no evidence of pna CTA done in march of 2016/ no PE (was tachycardic and hypoxic at that time ) patient says he is on 3 Liters of O2 at home *Urethral Trauma due to him pulling out catheter -bleeding stopped *Acute Kidney Injury, due to Hypovolemia, resolved *Encephalopathy: unclear baseline, improving. *Schizophrenia *Agitation resolved *nicotine dependence reviewed w him the importance of not smoking around oxygen *Hyperglycemia: steroid induced. Plan: Therapy recommending SNF/ hopefully can be dc in next 1-2 days Subjective: Dallin says he is not feeling well enough to be dc/ says he is breathing better. Objective: Vital Signs Temp Pulse Resp BP Pulse Ox 36.7 C 104 H 26 H 174/96 H 92 11/06/16 08:00 11/06/16 08:00 11/06/16 08:00 11/06/16 08:00 11/05/16 22:31 Microbiology 11/05/16 23:33 Respiratory Panel (PCR) - Final Nasal, Sinus - Swab No Organism Detected Laboratory Results 11/04/16 04:35 11/04/16 04:35 11/05/16 11/06/16 11/07/16 05:59 05:59 05:59 Intake Total 850 Balance 850 PT 15.1 SEC (12.0-15.0) H 11/03/16 04:15 INR 1.19 (0.83-1.16) H 11/03/16 04:15 - Physical Exam Constitutional: no apparent distress, not in pain Eyes: PERRL Ears, Nose, Mouth, Throat: hearing normal Cardiovascular: regular rate and rhythym Respiratory: no respiratory distress, reduced air movement (bibasilar) Skin: warm Musculoskeletal: generalized weakness Neurologic: AAOx3 Psychiatric: interacting appropriately, anxious, poor insight ICD10 Worksheet Patient Problems: Problems Problem Status Onset Acute bronchitis Acute COPD (chronic obstructive pulmonary disease) with acute bronchitis Acute Septic shock Acute Acidosis Acute Acute exacerbation of congestive heart failure Acute Acute respiratory failure Acute CHF (congestive heart failure) Acute COPD (chronic obstructive pulmonary disease) Acute COPD exacerbation Acute Chronic Disease Mgmt/Transitional Care Acute Chronic obstructive pulmonary disease with acute exacerbation Acute Dehydration Acute Elevated troponin Acute Hypercapnic respiratory failure Acute Hypothermia Acute Hypoxia Acute Respiratory distress Acute Sepsis Acute Tobacco abuse Acute
[2016-11-06] MEDS: NICOTINE 14 MG/24 HR PATCH TD SCH (08:55)
[2016-11-06] MEDS: predniSONE 20 MG TAB PO SCH (08:55)
[2016-11-06] MEDS: AZITHROMYCIN IV 250 MG in D5W 250 ML IV SCH (08:55)
--- NOTE | 2016-11-06 09:31 | PCMIDPN ---
Assessment/Plan: 1. Polymicrobial bacteremia: Agree with my colleague, Dr. Cardoza that this most likely represents contamination. Transthoracic echocardiogram does not reveal any evidence of vegetation, and I do not feel that this needs any further evaluation this point in time. 2. Acute bronchitis with COPD exacerbation: Continue azithromycin x5 days, then stop. Respiratory panel negative. Infectious Disease will sign off. Please feel free to call with questions. Subjective: Stable. Still coughing. Asking me what time it is. Objective: Azithromycin 250 p.o. daily Afebrile Vital Signs Temp Pulse Resp BP Pulse Ox 36.7 C 104 H 26 H 174/96 H 92 11/06/16 08:00 11/06/16 08:00 11/06/16 08:00 11/06/16 08:00 11/05/16 22:31 Microbiology 11/05/16 23:33 Respiratory Panel (PCR) - Final Nasal, Sinus - Swab No Organism Detected Laboratory Results 11/04/16 04:35 11/04/16 04:35 11/05/16 11/06/16 11/07/16 05:59 05:59 05:59 Intake Total 850 Balance 850 Respiratory panel negative - Physical Exam General Appearance: alert, no apparent distress Respiratory: wheezing, coarse breath sounds Cardiac/Chest: No diastolic murmur, No systolic murmur Abdomen: non-tender, soft Skin: No rash, No embolic lesions ICD10 Worksheet Patient Problems: Problems Problem Status Onset Acute bronchitis Acute COPD (chronic obstructive pulmonary disease) with acute bronchitis Acute Septic shock Acute Acidosis Acute Acute exacerbation of congestive heart failure Acute Acute respiratory failure Acute CHF (congestive heart failure) Acute COPD (chronic obstructive pulmonary disease) Acute COPD exacerbation Acute Chronic Disease Mgmt/Transitional Care Acute Chronic obstructive pulmonary disease with acute exacerbation Acute Dehydration Acute Elevated troponin Acute Hypercapnic respiratory failure Acute Hypothermia Acute Hypoxia Acute Respiratory distress Acute Sepsis Acute Tobacco abuse Acute
[2016-11-06] MEDS: LORazepam 2 MG/ML INJ IVP PRN (21:37)
[2016-11-06 22:07] LABS: GLUCOSE 324 mg/dL (70-100)
[2016-11-06] MEDS ORDERED: INSULIN LISPRO 100 UNIT/ML SC ONE (22:14)
[2016-11-07] MEDS: IPRATROPIUM/ALBUTEROL 3 ML DEYVIAL IH SCH ×5 (04:17→23:56)
[2016-11-07] MEDS: HEPARIN 5,000 UNIT/0.5 ML SYR SC SCH ×3 (05:42→22:50)
--- NOTE | 2016-11-07 08:10 | HOSPPROG ---
Hospitalist Progress Note Assessment/Plan: Patient is a 56 y/o male who presented to the ER after calling 911 for shortness of breath. * concern for bacteremia evaluated by ID/ likely a contaminant *sepsis w associated hypotension on admission treated w pressors resolved *respiratory failure w underlying COPD and bronchits steroids and azithro (5 days total) #4/#5 no evidence of pna patient says he is on 3 Liters of O2 at home chest xray today *Persistent tachycardia with increase O2 needs will get a CTA to r/o PE *Urethral Trauma due to him pulling out catheter -bleeding stopped *Acute Kidney Injury: resolved *Encephalopathy: unclear baseline, improving. *Schizophrenia *Agitation resolved *nicotine dependence reviewed w him the importance of not smoking around oxygen *Hyperglycemia: steroid induced. sliding scale Plan: Therapy recommending SNF/ hopefully can be dc in next 1-2 days/CM to get a PASSR done Subjective: Dallin is feeling better/ asking for coffee. Objective: Vital Signs Temp Pulse Resp BP Pulse Ox 36.9 C 95 18 133/72 H 93 11/06/16 23:25 11/06/16 23:25 11/06/16 23:25 11/06/16 23:25 11/06/16 23:25 Microbiology 11/05/16 23:33 Respiratory Panel (PCR) - Final Nasal, Sinus - Swab No Organism Detected Laboratory Results 11/04/16 04:35 11/06/16 21:35 PT 15.1 SEC (12.0-15.0) H 11/03/16 04:15 INR 1.19 (0.83-1.16) H 11/03/16 04:15 - Physical Exam Constitutional: not in pain, chronically ill appearing Eyes: PERRL Ears, Nose, Mouth, Throat: hearing normal Cardiovascular: regular rate and rhythym, tachycardia Respiratory: no respiratory distress, reduced air movement Gastrointestinal: normoactive bowel sounds Skin: warm Musculoskeletal: generalized weakness Neurologic: AAOx3 Psychiatric: interacting appropriately, poor insight, poor judgement ICD10 Worksheet Patient Problems: Problems Problem Status Onset Acute bronchitis Acute COPD (chronic obstructive pulmonary disease) with acute bronchitis Acute Septic shock Acute Acidosis Acute Acute exacerbation of congestive heart failure Acute Acute respiratory failure Acute CHF (congestive heart failure) Acute COPD (chronic obstructive pulmonary disease) Acute COPD exacerbation Acute Chronic Disease Mgmt/Transitional Care Acute Chronic obstructive pulmonary disease with acute exacerbation Acute Dehydration Acute Elevated troponin Acute Hypercapnic respiratory failure Acute Hypothermia Acute Hypoxia Acute Respiratory distress Acute Sepsis Acute Tobacco abuse Acute
[2016-11-07] MEDS: NICOTINE 14 MG/24 HR PATCH TD SCH (09:04)
[2016-11-07] MEDS: AZITHROMYCIN IV 250 MG in D5W 250 ML IV SCH (09:04)
[2016-11-07] MEDS: predniSONE 20 MG TAB PO SCH (09:05)
[2016-11-07] MEDS: INSULIN LISPRO 100 UNIT/ML SC SCH ×4 (09:05→22:49)
[2016-11-07 10:54] LABS: CALCIUM 8.4 mg/dL (8.5-10.4); CHLORIDE 84 mEq/L (97-110); CREATININE 0.7 mg/dL (0.7-1.3); GLOMERULAR FILTRATION RATE > 60; GLUCOSE 252 mg/dL (70-100); POTASSIUM 4.2 mEq/L (3.5-5.2); SODIUM 136 mEq/L (134-144)
[2016-11-07 11:09] LABS: ANION GAP 2 mEq/L (8-16)
[2016-11-07 11:10] LABS: CARBON DIOXIDE 50 mEq/l (22-31)
[2016-11-07] MEDS ORDERED: IOPAMIDOL (ISOVUE 370) 100 ML BTL IV ONE (11:19)
[2016-11-07 12:12] LABS: BASE EXCESS 22.5 mEq/L (-2.5-2.5); BICARBONATE 52 mEq/L (22-26); MEASURED OXYGEN SATURATION 85 % (92-95); PO2 46 mmHg (65-75)
[2016-11-07 12:16] LABS: PCO2 81 mmHg (34-38); TCO2 55 mEq/L (23-27)
[2016-11-08 04:49] LABS: CALCIUM 8.5 mg/dL (8.5-10.4); CHLORIDE 84 mEq/L (97-110); CREATININE 0.7 mg/dL (0.7-1.3); GLOMERULAR FILTRATION RATE > 60; GLUCOSE 82 mg/dL (70-100); POTASSIUM 4.1 mEq/L (3.5-5.2); SODIUM 136 mEq/L (134-144)
[2016-11-08 04:55] LABS: ANION GAP 1 mEq/L (8-16)
[2016-11-08 04:57] LABS: CARBON DIOXIDE 51 mEq/l (22-31)
[2016-11-08] MEDS: HEPARIN 5,000 UNIT/0.5 ML SYR SC SCH ×3 (05:01→22:18)
[2016-11-08] MEDS: IPRATROPIUM/ALBUTEROL 3 ML DEYVIAL IH SCH ×2 (05:38→12:35)
--- NOTE | 2016-11-08 08:42 | HOSPPROG ---
Hospitalist Progress Note Assessment/Plan: Patient is a 56 y/o male who presented to the ER after calling 911 for shortness of breath. * Hypercapnia ABG CO2 yesterday 80/ placed on bipap retaining CO2 on today's labs/ Dr Marcelino to see abg ordered for today * concern for bacteremia evaluated by ID/ a contaminant *sepsis w associated hypotension on admission treated w pressors resolved *respiratory failure w underlying COPD and bronchits steroids and azithro (5 days total) #5/#5 no evidence of pna patient says he is on 3 Liters of O2 at home *Persistent tachycardia with increase O2 needs CTA negative for a PE *Urethral Trauma due to him pulling out catheter -bleeding stopped *Acute Kidney Injury: resolved *Encephalopathy: unclear baseline, improving. *Schizophrenia *Agitation resolved *nicotine dependence reviewed w him the importance of not smoking around oxygen *Hyperglycemia: steroid induced. sliding scale + ADA diet Plan: Dr Marcelino to see, dc vera, CM looking at placement. Subjective: Dallin is feeling overall fine. Objective: Vital Signs Temp Pulse Resp BP Pulse Ox 37.0 C 93 24 H 142/87 H 92 11/08/16 07:55 11/08/16 07:55 11/08/16 07:55 11/08/16 07:55 11/08/16 07:55 Laboratory Results 11/04/16 04:35 11/08/16 04:23 11/07/16 11/08/16 11/09/16 05:59 05:59 05:59 Output Total 300 Balance -300 PT 15.1 SEC (12.0-15.0) H 11/03/16 04:15 INR 1.19 (0.83-1.16) H 11/03/16 04:15 - Physical Exam Constitutional: appears nourished, not in pain Eyes: PERRL Ears, Nose, Mouth, Throat: hearing normal Cardiovascular: regular rate and rhythym Respiratory: no respiratory distress, reduced air movement Gastrointestinal: normoactive bowel sounds Skin: warm Musculoskeletal: generalized weakness Neurologic: AAOx3 Psychiatric: interacting appropriately, poor insight, poor judgement ICD10 Worksheet Patient Problems: Problems Problem Status Onset Acute bronchitis Acute COPD (chronic obstructive pulmonary disease) with acute bronchitis Acute Septic shock Acute Acidosis Acute Acute exacerbation of congestive heart failure Acute Acute respiratory failure Acute CHF (congestive heart failure) Acute COPD (chronic obstructive pulmonary disease) Acute COPD exacerbation Acute Chronic Disease Mgmt/Transitional Care Acute Chronic obstructive pulmonary disease with acute exacerbation Acute Dehydration Acute Elevated troponin Acute Hypercapnic respiratory failure Acute Hypothermia Acute Hypoxia Acute Respiratory distress Acute Sepsis Acute Tobacco abuse Acute
[2016-11-08] MEDS: INSULIN LISPRO 100 UNIT/ML SC SCH ×4 (09:09→20:27)
[2016-11-08] MEDS: NICOTINE 14 MG/24 HR PATCH TD SCH (09:09)
[2016-11-08] MEDS: predniSONE 10 MG TAB PO SCH (09:10)
[2016-11-08] MEDS: AZITHROMYCIN IV 250 MG in D5W 250 ML IV SCH (09:10)
--- NOTE | 2016-11-08 10:47 | CPEKG ---
Heart Rate: 90 RR Interval: 667 P-R Interval: 148 QRSD Interval: 126 QT Interval: 388 QTC Interval: 475 P Kamiah: 82 QRS Kamiah: -87 T Wave Kam[place]: 50 EKG Severity - ABNORMAL ECG - EKG Impression: SINUS RHYTHM EKG Impression: RBBB AND LAFB EKG Impression: CONSIDER ANTERIOR INFARCT Electronically Signed By: Gwyn Kebede 08-Nov-2016 17:36:40
--- NOTE | 2016-11-08 15:02 | PDINTPN ---
Tool Distributor Progress Note Assessment/Plan: Assessment: 56 M with COPD and oxygen dependancy but poor compliance admitted 11/02 with COPD exacerbation, hypotension, and hypercapnic respiratory failure. His ABG showed a pH of 7.1 with a CO2 of 88 despite bipap and several adjustments; yet he was not in distress and awake. Bipap was dc'd and his abg improved, so never needed intubation. Blood cxs grew GPC, yet his BP normalized after IVF. * COPD exacerbation- etiology not clear but compliance likely a factor. He has a long history of CO2 retention, and is probably near baseline. He has end- stage COPD with severe CO2 retention. He will require careful fluid/volume management. He might benefit from nocturnal CPAP/BiPAP for his CO2 retention, but compliance is likely to be an issue. He's at high risk for readmission and acute respiratory failure requiring intubation, and could be difficult to extubate and may require long-term ventilation if he were to get intubated. He is currently full-code, and it's not clear to me that he understands the implications of being full cor with an end-stage disease that is likely to result in recurrent respiratory failure. * Hypotension- from acidosis, sepsis, volume or all of the above. Now off pressors. Blood cx grew COIN TELLER in 2/2 bottles, so started vancomycin. Procalcitonin never sent, so not likely helpful now. * Hematuria after self-inflicted traumatic barnett removal- spoke with urology who suggested no replacement, since he would likely do it again and continues to urinate. Should he develop urinary retention, could reconsider. * Schizophrenia- need to clarify chronic meds * Smoking: The patent reports that he had stopped for a while, then resumed several months ago. He wants to stop smoking. * OK for floor Plan: Start Spiriva, which is apparently a medication he takes at home. Stop Duonebs, continue albuterol. Continue Nicoderm, steroid taper. Palliative consult 11/08/16 15:10 Subjective: Feels that dyspnea is at baseline. Minimal cough. Wants to go home. Objective: Vital Signs Temp Pulse Resp BP Pulse Ox 37.0 C 88 18 142/87 H 92 11/08/16 07:55 11/08/16 12:36 11/08/16 12:36 11/08/16 07:55 11/08/16 12:36 Laboratory Results 11/04/16 04:35 11/08/16 04:23 11/07/16 11/08/16 11/09/16 05:59 05:59 05:59 Output Total 300 Balance -300 PT 15.1 SEC (12.0-15.0) H 11/03/16 04:15 INR 1.19 (0.83-1.16) H 11/03/16 04:15 Physical Exam - Physical Exam General Appearance: alert Neck: normal inspection Respiratory: lungs clear, decreased breath sounds Cardiac/Chest: regular rate, rhythm, No edema Abdomen: normal bowel sounds, non-tender Skin: normal color, warm/dry Extremities: normal inspection Neuro/Psych: alert, normal mood/affect, oriented x 3 ICD10 Worksheet Patient Problems: Problems Problem Status Onset Acute bronchitis Acute COPD (chronic obstructive pulmonary disease) with acute bronchitis Acute Septic shock Acute Acidosis Acute Acute exacerbation of congestive heart failure Acute Acute respiratory failure Acute CHF (congestive heart failure) Acute COPD (chronic obstructive pulmonary disease) Acute COPD exacerbation Acute Chronic Disease Mgmt/Transitional Care Acute Chronic obstructive pulmonary disease with acute exacerbation Acute Dehydration Acute Elevated troponin Acute Hypercapnic respiratory failure Acute Hypothermia Acute Hypoxia Acute Respiratory distress Acute Sepsis Acute Tobacco abuse Acute
[2016-11-08] MEDS ORDERED: FLUPHENAZINE DECANOATE 25 MG/ML 5 ML VIAL IM SCH (15:45)
[2016-11-08] MEDS: TIOTROPIUM INHALER 18 MCG/DOSE 5 DOSE/MDI IH SCH (17:43)
[2016-11-08 17:47] VITALS: RESP 18
[2016-11-09] MEDS: HEPARIN 5,000 UNIT/0.5 ML SYR SC SCH ×2 (05:15→14:25)
[2016-11-09 07:18] VITALS: BP 157/98; TEMP 97.7
[2016-11-09] MEDS ORDERED: FLUPHENAZINE HCL IM SCH (09:00)
[2016-11-09] MEDS ORDERED: FLUPHENAZINE DECANOATE 25 MG/ML 5 ML VIAL IM SCH (09:00)
[2016-11-09] MEDS: predniSONE 10 MG TAB PO SCH (09:45)
[2016-11-09] MEDS: NICOTINE 14 MG/24 HR PATCH TD SCH (09:45)
[2016-11-09] MEDS: INSULIN LISPRO 100 UNIT/ML SC SCH ×2 (09:50→14:24)
[2016-11-09] MEDS: TIOTROPIUM INHALER 18 MCG/DOSE 5 DOSE/MDI IH SCH (10:05)
[2016-11-09 10:12] VITALS: PULSE 99
[2016-11-09] MEDS ORDERED: FLUPHENAZINE DECANOATE IM SCH (10:30)
--- NOTE | 2016-11-09 10:35 | HOSPPROG ---
Hospitalist Progress Note Assessment/Plan: Patient is a 56 y/o male who presented to the ER after calling 911 for shortness of breath. * Hypercapnia/CO2 retention that is likely chronic ABG CO2 yesterday 80/ placed on bipap retaining CO2 on today's labs/ Dr Marcelino to see would benefit from CPAP/BIPAP at nite, but doubtful he will comply told Dallin i would try an order the machine and he said he wouldn't use a CPAP?BIPA * concern for bacteremia evaluated by ID/ a contaminant *sepsis w associated hypotension on admission treated w pressors resolved *respiratory failure w underlying COPD and bronchits steroids and azithro (5 days total) #5/#5 no evidence of pna patient says he is on 3 Liters of O2 at home *Persistent tachycardia with increase O2 needs CTA negative for a PE *Urethral Trauma due to him pulling out catheter -bleeding stopped *Acute Kidney Injury: resolved *Encephalopathy: unclear baseline, improving. *Schizophrenia resumed Fluphenazine Decanoate *Agitation resolved *nicotine dependence reviewed w him the importance of not smoking around oxygen *Hyperglycemia: steroid induced. sliding scale + ADA diet Plan: can go to but is declining/ has home O2, will use this, says he will quit smoking/ Palliative met with him/ he wants to be DNR/DNI. Palliative to confirm w his sister. Subjective: Dallin said he is feeling better/ wants to go home. Objective: Vital Signs Temp Pulse Resp BP Pulse Ox 36.5 C 99 18 157/98 H 91 L 11/09/16 07:16 11/09/16 10:06 11/09/16 07:16 11/09/16 07:16 11/09/16 10:06 Laboratory Results 11/04/16 04:35 11/08/16 04:23 11/08/16 11/09/16 11/10/16 05:59 05:59 05:59 Output Total 300 1800 Balance -300 -1800 PT 15.1 SEC (12.0-15.0) H 11/03/16 04:15 INR 1.19 (0.83-1.16) H 11/03/16 04:15 - Physical Exam Constitutional: no apparent distress, appears nourished Eyes: PERRL Ears, Nose, Mouth, Throat: hearing normal Cardiovascular: regular rate and rhythym Respiratory: no respiratory distress, reduced air movement Skin: warm Musculoskeletal: full muscle strength Neurologic: AAOx3 Psychiatric: interacting appropriately ICD10 Worksheet Patient Problems: Problems Problem Status Onset Acute bronchitis Acute COPD (chronic obstructive pulmonary disease) with acute bronchitis Acute Septic shock Acute Acidosis Acute Acute exacerbation of congestive heart failure Acute Acute respiratory failure Acute CHF (congestive heart failure) Acute COPD (chronic obstructive pulmonary disease) Acute COPD exacerbation Acute Chronic Disease Mgmt/Transitional Care Acute Chronic obstructive pulmonary disease with acute exacerbation Acute Dehydration Acute Elevated troponin Acute Hypercapnic respiratory failure Acute Hypothermia Acute Hypoxia Acute Respiratory distress Acute Sepsis Acute Tobacco abuse Acute
--- NOTE | 2016-11-09 12:12 | PDPCPN ---
Palliative Care Progress Note Assessment/Plan: Referring provider: Dr Marcelino Reason for consult: Complex medical decision making Symptom control HPI: Dallin Horta is a 56 yo male with PMH COPD, DM2, HTN, Diastolic CHF, and schizophrenia admitted to the hospital with SOB. Found to be in acute on chronic COPD exacerbation from likely non compliance with home oxygen. Started on nebs, steroids, and used bipap for hypercapnic resp failure. Improving and at baseline. Palliative care consulted for complex medical decision making. Met with Dallin this morning. His goals are to get back home to live his life. He states he wears his oxygen at home and was able to tell us that the oxygen company comes every Tuesday to refill his tanks. He enjoys going to [employer] and [employer] in the morning and often goes to [facility] for his mental health. He lives with his roommate Dione who he has been friends with for 20 years. Dione is able to help with errands, cooking, and cleaning. He refuses to wear bipap and understands he could soon because of this. He states he recently starting smoking again and that is why he is here in the hospital. He has been using nicotine patches here in the hospital and plans to continue them at home and avoid smoking. We talked about his end of life wishes. He states he would not want resuscitation or to be intubated. He would want to come back to the hospital for bipap, antibiotics, nebs, oxygen, or IV fluids if needed. He hopes to live at his home for a long time but if he continued to decline and needed more care he would be willing at that time to go to a facility. He did not want to fill out a MOST form. Called his sister Ena who is MDPOA with Dallin's permission. Updated her on Dallin's condition. We spoke about his end stage COPD and his decision to not use bipap at home and continue probable non compliance leading to this hospitalization. She states she knows he does not always comply and does not feel that will change. Updated her on his wishes as he stated above. She was grateful as Dallin has never told her his wishes before. She states their father from COPD after being on [facility] ventilation for over 1 month so is ok with Dallin's wishes for no intubation. She also understands his decisions for going home and not a SNF. Assessment: Physical: - Pain: none at present -tylenol PRN - Dyspnea: - at times - encourage him to wear oxygen all the time - refuses bipap at home - continue nebs and steroids per pulmonology - a fan can sometimes help subjective dyspnea Emotional/psychological: Schizophrenia: goes to [facility] for his injections reguarlly Advanced Care Planning: Is patient decisional?: Yes Code Status: DNR/DNI- selective. Does not want to fill out a MOST form MD PETERSEN: His Sister Ena is MDPOA. Plan: Home, refuses bipap. Hopes for life prolongation but understands he could . Would be ok with SNF if he was completely unable to care for himself in the future if he gets worse. Prefers to be at home as long as possible until then. 11/09/16 12:13 Subjective: i'm ok Objective: Social History: Lives with roommate Dione who helps him with errands. Has 1 sister Ena who lives in [place] and is involved. Medication list reviewed ROS: General: negative ENT: negative Resp: dyspnea, cough GI: negative : negative MS: negative Skin: negative Neuro: negative Psych: occasional agitation Functional assessment: PPS: 60% Functional status: independent with most ADLs. Roommate dione helps with groceries, cooking, and cleaning Vital Signs Temp Pulse Resp BP Pulse Ox 36.5 C 99 18 157/98 H 91 L 11/09/16 07:16 11/09/16 10:06 11/09/16 07:16 11/09/16 07:16 11/09/16 10:06 Laboratory Results 11/04/16 04:35 11/08/16 04:23 11/08/16 11/09/16 11/10/16 05:59 05:59 05:59 Output Total 300 1800 Balance -300 -1800 PT 15.1 SEC (12.0-15.0) H 11/03/16 04:15 INR 1.19 (0.83-1.16) H 11/03/16 04:15 Physical Exam - Physical Exam General Appearance: alert, no apparent distress Respiratory: No respiratory distress, No accessory muscle use Skin: normal color, warm/dry Extremities: No pedal edema Neuro/Psych: alert, oriented x 3 ICD10 Worksheet Patient Problems: Problems Problem Status Onset Acute bronchitis Acute COPD (chronic obstructive pulmonary disease) with acute bronchitis Acute Palliative care encounter Acute Septic shock Acute Acidosis Acute Acute exacerbation of congestive heart failure Acute Acute respiratory failure Acute CHF (congestive heart failure) Acute COPD (chronic obstructive pulmonary disease) Acute COPD exacerbation Acute Chronic Disease Mgmt/Transitional Care Acute Chronic obstructive pulmonary disease with acute exacerbation Acute Dehydration Acute Elevated troponin Acute Hypercapnic respiratory failure Acute Hypothermia Acute Hypoxia Acute Respiratory distress Acute Sepsis Acute Tobacco abuse Acute - ICD10 Problem Qualifiers (1) Palliative care encounter
[2016-11-09 14:21] VITALS: O2SAT 92
--- NOTE | 2016-11-09 14:46 | GDS ---
[f rep st] DISCHARGE SUMMARY DISCHARGE DIAGNOSES: 1. Hypercapnia with chronic CO2 retention. 2. Initial concern for bacteremia. 3. Sepsis with associated hypotension on admission. 4. Respiratory failure with underlying chronic obstructive pulmonary disease and bronchitis. 5. Persistent tachycardia. 6. Urethral trauma. 7. Acute kidney injury. 8. Encephalopathy. 9. Schizophrenia. 10. Nicotine dependence. 11. Hyperglycemia. CONSULTATIONS: 1. Dr. Aaron Cardoza. 2. Dr. Miguelito Ojeda. HOSPITAL COURSE: Briefly, the patient is a 56-year-old male who has a history of schizophrenia and COPD. He called 911 because he was very short of breath and was quite distressed on arrival. On admission, he was placed on BiPAP and improved. There was concern that he had bacteremia and was treated with vancomycin, azithromycin. He was hypotensive, due to being hypovolemic. Throughout his stay, he had persistent tachycardia with ongoing hypoxemia. A CTA was performed, which was negative for PE. In addition, he had an echocardiogram performed that showed that the right ventricle is moderately dilated, and his RV systolic function is reduced. He has normal LV systolic function. There is Doppler evidence for mild pulmonary hypertension. He continued to retain carbon dioxide and was treated with BiPAP frequently, which helped improve his mental status. Today, he is alert and oriented. He wants to go home. I have recommended he go to [facility] for closer monitoring. He declined. I offered to try and arrange a BiPAP/CPAP machine for his home. He declined this. The plan is for him to discharge and to follow up with his primary care provider. He was seen by the Palliative Care team. He is a DNR/ DNI after discussion with Palliative Care. HOSPITAL COURSE: Per problem: 1. Hypercapnia. He has been retaining CO2. He does not want any further evaluation. 2. Concern for bacteremia. He was evaluated by Infectious Disease, likely a contaminant. 3. Sepsis with associated hypotension. It is likely that he was dehydrated. He was treated with pressors and IV fluids. This improved. 4. Respiratory failure with underlying COPD and bronchitis. He was treated for 5 days total of azithromycin. 5. Persistent tachycardia. CTA is negative for PE. 6. Urethral trauma. He pulled out the catheter; his bleeding resolved. 7. Acute kidney injury, resolved. 8. Encephalopathy, stable. 9. Schizophrenia. His home medication has been resumed. He is stable. 10. Nicotine dependence. He will get a prescription for a nicotine patch. 11. Hyperglycemia. This has been steroid induced. He has been on ADA diet and sliding scale. He can restart his metformin tomorrow. PENDING LABS AND TESTS: None. CONDITION ON DISCHARGE: Stable. Blood pressure is 157/98, heart rate of 99. Respiratory rate is 18. O2 saturations on 3 L are 91%. Temperature is 36.5 Celsius. DISCHARGE MEDICATIONS: Please see the EMR. DISCHARGE INSTRUCTIONS: 1. Recommending he completely stop smoking. 2. If he develops shortness of breath or has trouble breathing, to return to the ER. Greater than 30 minutes discharging and coordinating care. Copy requested to: Dr. Marcelino /[id number]/MODL MTDIsela
[2016-11-10] MEDS ORDERED: ASPIRIN 81 MG CHEWABLE TAB PO SCH (09:00)
[2016-11-11] MEDS ORDERED: predniSONE 20 MG TAB PO SCH (09:00)
[2016-11-14] MEDS ORDERED: predniSONE 10 MG TAB PO SCH (09:00)
== END 2016-11-09 14:44 | disposition home or self-care (01) | DRG 871 ==
LOC: EDUNIT# → OBSVTOIN 19:28 → F2N 20:57 → F3E 11-04 14:50
PROVIDERS: ADMIT Internal Medicine; ATTEND Hospitalist
DX: A41.9 Sepsis, unspecified organism (principal); J44.1 Chronic obstructive pulmonary disease with (acute) exacerbation; J96.22 Acute and chronic respiratory failure with hypercapnia; N17.9 Acute kidney failure, unspecified; E11.65 Type 2 diabetes mellitus with hyperglycemia; I11.0 Hypertensive heart disease with heart failure; I50.30 Unspecified diastolic (congestive) heart failure; F17.210 Nicotine dependence, cigarettes, uncomplicated; Z66 Do not resuscitate; Z99.81 Dependence on supplemental oxygen; Z86.711 Personal history of pulmonary embolism; Z59.0 Homelessness
CPT/HCPCS: 82947-QW; 92523-GN; 96365; 97116-GP; 97161-GP; 97165-GO; 97530-GO; 97535-GO; G0480; G8978-GP-CI; G8979-GP-CH; G8979-GP-CI; G8980-GP-CI; G8987-GO-CJ; G8988-GO-CI; G9165-GN-CK; G9166-GN-CJ; J0456; J1170; J1815; J1956; J2060; J2680; J3370; Q9967

== ENCOUNTER 2016-12-01 13:07 | Emergency (ER) | payer OTHER, MEDICAID ==
[2016-12-01 13:16] VITALS: BP 119/80; PULSE 96; RESP 17; TEMP 97.5; O2SAT 95
--- NOTE | 2016-12-01 13:48 | EDPHY ---
H & P Stated Complaint: SOB, ran out of O2 Time Seen by Provider: 12/01/16 13:40 HPI/ROS: CHIEF COMPLAINT: ran out of oxygen HISTORY OF PRESENT ILLNESS: Patient is a 56-year-old man with a history of emphysema and schizophrenia who comes to the emergency department because he round of oxygen around 11 o'clock this morning. He typically wears 3 L continuously. He was given oxygen by EMS and states that he now feels completely normal. He has not had a fever. He has not had cough. He denies chest pain. He tells me that his oxygen gets delivered every Tuesday between noon and 2:00 p.m.. REVIEW OF SYSTEMS: Constitutional: denies: chills, fever, recent illness, recent injury EENTM: denies: blurred vision, double vision, nose congestion Respiratory: See HPI Cardiac: denies: chest pain, irregular heart rate, lightheadedness, palpitations Gastrointestinal/Abdominal: denies: abdominal pain, diarrhea, nausea, vomiting, blood streaked stools Genitourinary: denies: dysuria, frequency, hematuria, pain Musculoskeletal: denies: joint pain, muscle pain Skin: denies: lesions, rash, jaundice, bruising Neurological: denies: headache, numbness, paresthesia, tingling, dizziness, weakness Hematologic/Lymphatic: denies: blood clots, easy bleeding, easy bruising Immunologic/allergic: denies: HIV/AIDS, transplant EXAM: GENERAL: Thin HEAD: Atraumatic, normocephalic. EYES: Pupils equal round and reactive to light, extraocular movements intact, sclera anicteric, conjunctiva are normal. ENT: TMs normal, nares patent, oropharynx clear without exudates. Moist mucous membranes. NECK: Normal range of motion, supple without lymphadenopathy or JVD. LUNGS: Mild diffuse wheezing, baseline HEART: Regular rate and rhythm without murmurs, rubs or gallops. ABDOMEN: Soft, nontender, normoactive bowel sounds. No guarding, no rebound. No masses appreciated. BACK: No CVA tenderness, no spinal tenderness, step-offs or deformities EXTREMITIES: Normal range of motion, no pitting or edema. No clubbing or cyanosis. NEUROLOGICAL: Cranial nerves II through XII grossly intact. Normal speech, normal gait. 5/5 strength, normal movement in all extremities, normal sensation PSYCH: Normal mood, normal affect. SKIN: Warm, dry, normal turgor, no visible rashes or lesions. Source: Patient, EMS Exam Limitations: No limitations - Personal History Current Tetanus/Diphtheria Vaccine: Yes Current Tetanus Diphtheria and Acellular Pertussis (TDAP): Yes - Medical/Surgical History Hx Asthma: No Hx Chronic Respiratory Disease: Yes Hx Diabetes: Yes Hx Cardiac Disease: Yes Hx Renal Disease: No Hx Cirrhosis: No Hx Alcoholism: No Hx HIV/AIDS: No Hx Splenectomy or Spleen Trauma: No Other PMH: EMPHYSEMA. PARANOID SCHIZAPHRENIC. DM II. HTN, CHF - Family History Significant Family History: Hypertension - Social History Smoking Status: Current every day smoker Alcohol Use: Heavy Constitutional: Initial Vital Signs Temperature (C) 36.4 C 12/01/16 13:13 Heart Rate 96 12/01/16 13:13 Respiratory Rate 17 12/01/16 13:13 Blood Pressure 119/80 12/01/16 13:13 O2 Sat (%) 95 12/01/16 13:13 O2 Delivery Mode Nasal Cannula O2 (L/minute) 3 Allergies/Adverse Reactions: No Known Allergies Allergy (Verified 12/01/16 13:13) Home Medications: Medication Instructions Recorded Furosemide [Lasix 20 MG (*)] 20 mg PO DAILY 10/30/15 Lisinopril [Zestril 20 mg (*)] 20 mg PO DAILY 10/30/15 Albuterol [Ventolin Hfa Inhaler] 2 puffs IH Q4 PRN 12/04/15 Aspirin [Aspirin 81mg (*)] 81 mg PO DAILY #30 tab 03/29/16 Metformin HCl [Metformin 1000 mg] 1,000 mg PO BIDMEAL 06/27/16 Tiotropium Inhaler [Spiriva 18 mcg IH HS 06/27/16 Handihaler] Acetaminophen [Tylenol 325mg (*)] 650 mg PO Q4HRS PRN #0 tab 06/28/16 fluPHENAZine DECANOATE 12.5 gm IM Q14D 11/08/16 [Fluphenazine Decanoate] Nicotine [Nicoderm Cq 14 mg (*)] 14 mg TD DAILY #30 patch 11/09/16 Tiotropium Inhaler [Spiriva 18 mcg IH DAILY #1 mdi 11/09/16 Handihaler] fluPHENAZine DECANOATE 12.5 mg IM Q14D ml 11/09/16 [Fluphenazine Decanoate] predniSONE 20 mg PO DAILY #6 tablet 11/09/16 Medical Decision Making ED Course/Re-evaluation: Case management has been consulted. The oxygen company is bringing him a bottle so he can get back home. We will help arrange a ride. They will refill his oxygen. Also the patient has a oxygen concentrator at home and was instructed how to use it. Patient is grateful and declines further workup or testing. Differential Diagnosis: Partial list of the Differential diagnosis considered include but were not limited to; COPD, bronchitis and although unlikely based on the history and physical exam, I also considered pneumonia, acute coronary disease, CHF exacerbation. I discussed these differential diagnoses and the plan with the patient as well as the usual and expected course. The patient understands that the diagnosis is provisional and that in medicine we are not always correct and that further workup is often warranted. Usual and customary warnings were given. All of the patient's questions were answered. The patient was instructed to return to the emergency department should the symptoms at all worsen or return, otherwise to followup with the physician as we discussed. Departure - Departure Disposition: Home, Routine, Self-Care Clinical Impression: Dependence on supplemental oxygen COPD (chronic obstructive pulmonary disease) Qualifiers: COPD type: unspecified COPD Qualified Code(s): J44.9 - Chronic obstructive pulmonary disease, unspecified Condition: Good Instructions: Using Oxygen at Home (ED) Referrals: NONE *PRIMARY CARE P,. [Primary Care Provider] - As per Instructions [facility],. [Clinic] - As per Instructions
== END 2016-12-01 15:39 | disposition home or self-care (01) ==
LOC: EDUNIT#
DX: J44.9 Chronic obstructive pulmonary disease, unspecified (principal); I11.0 Hypertensive heart disease with heart failure; I50.9 Heart failure, unspecified; E11.9 Type 2 diabetes mellitus without complications; F17.200 Nicotine dependence, unspecified, uncomplicated; Z79.82 Long term (current) use of aspirin; Z79.84 Long term (current) use of oral hypoglycemic drugs; Z99.81 Dependence on supplemental oxygen

== ENCOUNTER 2016-12-02 07:29 | Inpatient (IN) | payer OTHER, MEDICAID ==
[2016-12-02] MEDS ORDERED: PROPOFOL/EMULSION 1,000 MG/100 ML BOTTLE IV ONE (07:30)
[2016-12-02] MEDS ORDERED: ETOMIDATE 20 MG/10 ML VIAL IVP ONE (07:33)
[2016-12-02] MEDS ORDERED: SUCCINYLCHOLINE CHLORIDE 200 MG/10 ML VIAL IVP ONE (07:33)
[2016-12-02] MEDS ORDERED: NS 500 ML IV ONE (07:39)
[2016-12-02] MEDS ORDERED: NS 1,000 ML IV ONE ×2 (07:40→10:25)
[2016-12-02 07:51] LABS: % IMMATURE GRANULYOCYTES 1.8 % (0.0-1.1); ABSOLUTE IMMATURE GRANULOCYTES 0.11 10^3/uL (0.00-0.10); ABSOLUTE NRBC COUNT 0.14 10^3/uL (0-0.01); ADD DIFF? NO; ADD MORPH? YES; ADD SCAN? NO; ATYPICAL LYMPHOCYTE FLAG 20 (0-99); FRAGMENT RBC FLAG 0 (0-99); HEMATOCRIT 44.9 % (40.0-51.0); HEMOGLOBIN 12.5 g/dL (13.7-17.5); LEFT SHIFT FLG 10 (0-99); LIPEMIA HEMOLYSIS FLAG 70 (0-99); MEAN CELL HEMOGLOBIN 29.3 pg (27.9-34.1); MEAN CELL VOLUME 105.2 fL (81.5-99.8); MEAN PLATELET VOLUME 10.1 fL (8.7-11.7); PLATELET CLUMPS FLAG 0 (0-99); PLATELET COUNT 152 10^3/uL (150-400); RED BLOOD CELL COUNT 4.27 10^6/uL (4.40-6.38); RED CELL DISTRIBUTION WIDTH 17.5 % (11.5-15.2)
--- NOTE | 2016-12-02 07:51 | CPEKG ---
Heart Rate: 123 RR Interval: 488 QRSD Interval: 118 QT Interval: 384 QTC Interval: 550 QRS [place]: -92 T Wave [place]: 76 EKG Severity - ABNORMAL ECG - EKG Impression: ATRIAL FIBRILLATION EKG Impression: RIGHT BUNDLE BRANCH BLOCK Electronically Signed By: Miracle Sher 02-Dec-2016 15:10:16
[2016-12-02] MEDS ORDERED: PHENYLEPHRINE HCL 100 MCG/ML SYR ONE (07:54)
[2016-12-02 07:55] LABS: MEAN CELL HEMOGLOBIN CONCENTR. 27.8 g/dL (32.4-36.7); NRBC-AUTO% 2.3 % (0.0-0.2)
[2016-12-02] MEDS ORDERED: NOREPINEPHRINE 4 MG/4 ML INJ IV ONE (08:00)
[2016-12-02] MEDS ORDERED: NOREPINEPHRINE/NS 500 ML IV ONE (08:06)
--- NOTE | 2016-12-02 08:07 | EDPHY ---
H & P Time Seen by Provider: 12/02/16 07:38 HPI/ROS: HPI Found down, post arrest. 56-year-old male by ambulance. Patient was found on the floor, unconscious and unresponsive at his motor home by her roommate. EMS was called. Patient has a history of COPD and cardiac issues. Patient was seen in the emergency department yesterday because he had run out of his home oxygen. No history of trauma. 2, IO lines placed bilateral tibia. Right functional, left nonfunctional. By EMS. ROS: Unable to obtain. Past medical history: COPD. Cardiac. Social history: Smoker. Unknown alcohol. Lives in a motor home. Has a roommate. Physical Exam: General Appearance: Unresponsive. This patient appears well-hydrated and well- nourished. Eyes: Pupils equal and round with minimal reactivity at 2-1 mm, no pallor or injection. No lid edema, erythema or injection. ENT, Mouth: Combi tube in place. Mucous membranes are moist. The pharyngeal tissues are unremarkable. No edema or swelling. No asymmetry suggestive of abscess. No erythema or exudates. No tongue lacerations or abrasions. Respiratory: There are no retractions, lungs are clear to auscultation with good air movement bilaterally on bag ventilation. Cardiovascular: Tachycardia. No murmur appreciated. Gastrointestinal: Abdomen is soft, no masses, bowel sounds normal. No focal tenderness at McBurney's point. No Quiles sign. Neurological: Patient moves all 4 extremities. Skin: Warm and dry, no rashes. Musculoskeletal: Neck is supple. Extremities are symmetrical. All joints range without impingement. Database: EKG: EKG time is 7:39 a.m.; EKG shows atrial fibrillation with ventricular rate of 123. Underlying right bundle branch block. EKG compared to previous EKG on November 08 which also shows a right bundle branch block but sinus rhythm. Interpreted by me. EKG time 7:57 a.m.; EKG shows atrial fibrillation with ventricular rate average of 116, underlying right bundle branch block. Otherwise no changes from above. Interpreted by me. EKG time is 8:13 a.m.: EKG shows sinus rhythm with underlying right bundle branch block, left anterior fascicular block, ventricular rate 79. No ST, T- wave changes indicative of ischemic or injury pattern. Interpreted by me. Imaging: Chest x-ray AP portable; the cardiac mediastinal silhouette is unremarkable. Endotracheal tube is in good position. No evidence of infiltrate or pneumothorax. No acute cardiopulmonary disease process noted. Interpreted by me. Chest x-ray AP portable; tip of right internal jugular vein central line distal superior vena cava. No pneumothorax. Interpreted by me. CT head without contrast: Negative for acute pathology. Results were discussed with staff radiologist Dr. Jelani Morrison. Procedures: Rapid sequence intubation. Indication for the procedure was post arrest, unresponsive. The patient was preoxygenated with 100% oxygen by face mask after removal of the Combi tube. The patient was sedated with 20 mg of IV etomidate and paralyzed with 200 mg of IV succinylcholine. The patient was orally endotracheally intubated under direct visualization with a 7.5 ETT. Tracheal intubation was confirmed with misting on the tube; breath sounds were auscultated equally bilaterally; appropriate color change with [place] [employer] CO2 detector, capnography waveform is appropriate, oxygen saturation after procedure is 100%. Chest X- ray shows ETT in good position. The procedure was performed by myself. Procedure: Central line placement. Ultrasound guidance: Using the linear probe covered in a sterile sheath, a short axis of the vein was obtained. The vein was completely compressible and was identified as separate from the adjacent non-compressible arterial structure. Under real-time guidance, the introducer needle was observed up to the vein, and then punctured it. These images were saved on the database. Central line placement: The indication for the procedure was cardiopulmonary arrest, hypotension. After verbal informed consent from patient; the risks were explained including bleeding, infection, and collapsed lung. Maximal sterile barrier technique was uses including cap, gown, sterile gloves, large sheet, hand washing and chlorhexidine prep. The area anesthetized with 1% lidocaine. The right internal jugular was punctured with a 19 gauge finder needle, then a wire introducer was placed, a triple-lumen catheter was placed using Seldinger technique. There were no complications. Blood return low pressure, dark blood. The patient tolerated procedure well. CXR results: Shows correct line placement. No pneumothorax. as interpreted by myself. Radiologist interpretation is pending. The procedure was performed by myself. Procedure: Thermo guard catheter placement. Ultrasound guidance: Using the linear probe covered in a sterile sheath, a short axis of the vein was obtained. The vein was completely compressible and was identified as separate from the adjacent non-compressible arterial structure. Under real-time guidance, the introducer needle was observed up to the vein, and then punctured it. These images were saved on the database. Central line placement: The indication for the procedure was HACA protocol. After verbal informed consent from patient; the risks were explained including bleeding, infection, and collapsed lung. Maximal sterile barrier technique was uses including cap, gown, sterile gloves, large sheet, hand washing and chlorhexidine prep. The area anesthetized with 1% lidocaine. The right femoral vein was punctured with a 19 gauge finder needle, then a wire introducer was placed, a thermo guard catheter was placed using Seldinger technique. There were no complications. Blood return low pressure, dark blood. The patient tolerated procedure well. The procedure was performed by myself. Emergency department course: 2 large-bore antecubital IVs placed bilateral upper extremities. Patient placed on a monitor. Endotracheal intubation as above. EKG performed and reviewed by myself. Patient started on IV normal saline with 500 cc to be given over the next hour. I-STAT performed. Potassium 3.9. Glucose 208. Hematocrit normal. Patient started on a propofol drip. 7:40 a.m., patient became hypotensive. Propofol drip discontinued. Patient started on IV normal saline bolus with 500 cc to be given initially and repeated as needed. Patient given phenylephrine at 50 mcg to 100 mcg IV doses every 3-5 minutes secondary to hypotension. 8:00 a.m., patient started on a dopamine drip initially, this was then transitioned Levophed. Central line placed as above. 8:45 a.m., blood pressure 94/64, cardiac exercise specialist shows a sinus rhythm with ventricular rate of 95. Patient currently on dopamine 8 micrograms/kg per minute and Levophed at 8 micrograms/minute. He will be sent for CT noncontrast head shortly. Case discussed with hospitalist. Patient accepted to the ICU by the hospitalist service under the care of Dr. Blancas. 8:50 a.m., discussed HACA protocol and thermal guard catheter placement with hospitalist. Troponin minimally elevated. 9:15 a.m., thermoguard catheter placed, right femoral vein per HACA protocol. Cooling initiated. Patient admitted to ICU. 10:15 a.m., patient has been transferred to the ICU. Urinalysis shows red blood cells and white blood cells on micro. Otherwise negative for leukocyte esterase and negative for nitrates. Antibiotic administration and further management deferred to hospitalist service. Differential Diagnosis: The differential diagnosis on this patient includes but is not limited to hypoxic cardiopulmonary arrest, UT, PE, intracranial bleed, CVA, seizure. This represents a partial list of diagnoses considered. These considerations are based on history, physical exam, past history, reassessment and diagnostic testing. Smoking Status: Current every day smoker Constitutional: Initial Vital Signs Heart Rate 118 H 12/02/16 07:30 Respiratory Rate 16 12/02/16 07:30 Blood Pressure 129/96 H 12/02/16 07:30 O2 Sat (%) 100 12/02/16 07:30 O2 Delivery Mode Ventilator Allergies/Adverse Reactions: No Known Allergies Allergy (Verified 12/01/16 13:13) Home Medications: Medication Instructions Recorded Furosemide [Lasix 20 MG (*)] 20 mg PO DAILY 10/30/15 Lisinopril [Zestril 20 mg (*)] 20 mg PO DAILY 10/30/15 Albuterol [Ventolin Hfa Inhaler] 2 puffs IH Q4 PRN 12/04/15 Aspirin [Aspirin 81mg (*)] 81 mg PO DAILY #30 tab 03/29/16 Metformin HCl [Metformin 1000 mg] 1,000 mg PO BIDMEAL 06/27/16 Tiotropium Inhaler [Spiriva 18 mcg IH HS 06/27/16 Handihaler] Acetaminophen [Tylenol 325mg (*)] 650 mg PO Q4HRS PRN #0 tab 06/28/16 fluPHENAZine DECANOATE 12.5 gm IM Q14D 11/08/16 [Fluphenazine Decanoate] Nicotine [Nicoderm Cq 14 mg (*)] 14 mg TD DAILY #30 patch 11/09/16 Tiotropium Inhaler [Spiriva 18 mcg IH DAILY #1 mdi 11/09/16 Handihaler] fluPHENAZine DECANOATE 12.5 mg IM Q14D ml 11/09/16 [Fluphenazine Decanoate] predniSONE 20 mg PO DAILY #6 tablet 11/09/16 Medical Decision Making Critical Care Time: I spent a total of 104 minutes of critical care time in obtaining history, performing a physical exam, bedside monitoring of interventions, collecting and interpreting tests and discussion with consultants but not including time spent performing procedures. - Data Points Laboratory Results: Laboratory Results 12/02/16 07:41 12/02/16 07:41 Medications Given: Discontinued Medications Etomidate (Etomidate) 20 mg IVP ONCE ONE Stop: 12/02/16 07:34 Last Admin: 12/02/16 07:33 Dose: 20 mg Dopamine HCl/Dextrose (Dopamine 1600 Mcg/Ml (Premix)) 250 mls @ 0 mls/hr IV EDNOW ONE; Titrate PRN Reason: Protocol Stop: 12/02/16 08:20 Last Admin: 12/02/16 08:19 Dose: 250 mls Sodium Chloride (Ns) 1,000 mls @ 0 mls/hr IV ONCE ONE PRN Reason: Wide Open Stop: 12/02/16 07:41 Last Admin: 12/02/16 07:40 Dose: 1,000 mls Ketamine HCl (Ketamine) 60 mg IVP ONCE ONE Stop: 12/02/16 08:43 Last Admin: 12/02/16 08:42 Dose: 60 mg Ketamine HCl (Ketamine) 40 mg IVP ONCE ONE Stop: 12/02/16 09:38 Last Admin: 12/02/16 09:37 Dose: 40 mg Lorazepam (Ativan Injection) 2 mg IVP Q2HRS PRN PRN Reason: Anxiety, Unable to Take PO Stop: 05/31/17 11:27 Last Admin: 12/02/16 18:08 Dose: 2 mg Morphine Sulfate (Morphine) 5 mg IVP Q1HR KIRSTEN Stop: 12/12/16 11:59 Last Admin: 12/02/16 18:39 Dose: Not Given Phenylephrine HCl (Neosynephrine) 450 mcg IVP ONCE ONE Stop: 12/02/16 12:37 Last Admin: 12/02/16 14:24 Dose: Not Given Succinylcholine Chloride (Quelicin) 200 mg IVP ONCE ONE Stop: 12/02/16 07:34 Last Admin: 12/02/16 07:33 Dose: 200 mg Departure - Departure Disposition: [facility] Inpatient Acute Clinical Impression: Cardiopulmonary arrest, Hypotension, Atrial fibrillation Condition: Critical
[2016-12-02 08:13] LABS: ANION GAP 25 mEq/L (8-16); CALCIUM 9.1 mg/dL (8.5-10.4); CARBON DIOXIDE 31 mEq/l (22-31); CHLORIDE 87 mEq/L (97-110); ETHANOL SERUM < 10 mg/dL (0-10); GLOMERULAR FILTRATION RATE > 60; GLUCOSE 207 mg/dL (70-100); POTASSIUM 4.1 mEq/L (3.5-5.2); SODIUM 143 mEq/L (134-144)
[2016-12-02] MEDS ORDERED: DOPamine/DEXTROSE/250 ML BAG IV ONE (08:13)
[2016-12-02 08:21] LABS: PLATELET ESTIMATE ADEQUATE (ADEQ)
[2016-12-02 08:22] LABS: POLYCHROMASIA 2+
[2016-12-02 08:26] LABS: INR 1.06 (0.83-1.16); PROTIME(PATIENT) 13.7 SEC (12.0-15.0)
[2016-12-02] MEDS ORDERED: NOREPINEPHRINE/NS 500 ML IV SCH (08:30)
[2016-12-02 08:33] LABS: CREATINE KINASE-MB FRACTION 9.29 ng/mL (0-4.55); TROPONIN I 0.054 ng/mL (0-0.034)
[2016-12-02 08:36] LABS: CK-MB INTERPRETATION POSITIVE (NEGATIVE)
[2016-12-02] MEDS ORDERED: KETAMINE 100 MG/10 ML SYR IVP ONE (08:42)
[2016-12-02] MEDS ORDERED: KETAMINE 500 MG in D5W 500 ML IV SCH (08:45)
[2016-12-02] MEDS ORDERED: KETAMINE 100 MG in D5W 100 ML IV ONE (08:45)
[2016-12-02] MEDS ORDERED: KETAMINE 100 MG in D5W 100 ML IV SCH (09:00)
[2016-12-02] MEDS ORDERED: KETAMINE 500 MG/10 ML VIAL IVP ONE (09:37)
[2016-12-02 09:53] LABS: COLOR YELLOW; LEUKOCYTE ESTERASE,URINE NEGATIVE (NEGATIVE); NITRITE,URINE NEGATIVE (NEGATIVE)
[2016-12-02 10:02] LABS: AMORPHOUS PRESENT /hpf (NONE-1+); BACTERIA 1+ /hpf (NONE SEEN); HYALINE CASTS 25-50 /lpf (0-1); MUCUS 2+ /lpf (NONE-1+); RBC,URINE 50-182 /hpf (0-3); WBC,URINE 50-182 /hpf (0-3)
[2016-12-02] MEDS ORDERED: NS 250 ML IV PRN (10:25)
[2016-12-02] MEDS ORDERED: NARCOTIC DRIP BAG-TOTAL ALL TYPES IV PRN (10:25)
[2016-12-02] MEDS ORDERED: USE *INSINTENS FOR HYPOGLYCEMIA ORDERS MISC ONE (10:25)
[2016-12-02] MEDS ORDERED: MIDAZOLAM 2 MG/2 ML VIAL IVP PRN (10:25)
[2016-12-02] MEDS ORDERED: MIDAZOLAM HCL 50 MG in D5W 50 ML IV PRN (10:25)
[2016-12-02] MEDS ORDERED: fentaNYL 100 MCG/2 ML INJ IVP ONE (10:25)
[2016-12-02] MEDS ORDERED: niCARdipine/NACL 200 ML IV PRN (10:25)
[2016-12-02] MEDS ORDERED: NS 1,000 ML IV SCH (10:25)
[2016-12-02] MEDS ORDERED: PROTOCOL MAGNESIUM 1 DOSE IV PRN (10:25)
[2016-12-02] MEDS ORDERED: VECURONIUM BROMIDE 50 MG in D5W 50 ML IV SCH (10:25)
[2016-12-02] MEDS ORDERED: PROPOFOL/EMULSION 100 ML IV SCH (10:25)
[2016-12-02] MEDS ORDERED: PROTOCOL POTASSIUM 1 DOSE MISC PRN (10:25)
[2016-12-02] MEDS ORDERED: fentaNYL/NACL 100 ML IV SCH (10:25)
[2016-12-02] MEDS ORDERED: NOREPINEPHRINE 4MG/NS 500 ML IV PRN (10:25)
--- NOTE | 2016-12-02 11:13 | CPEKG ---
Heart Rate: 79 RR Interval: 759 P-R Interval: 176 QRSD Interval: 120 QT Interval: 440 QTC Interval: 505 P Owings: 90 QRS Owings: -85 T Wave Owings: 36 EKG Severity - ABNORMAL ECG - EKG Impression: SINUS RHYTHM EKG Impression: VENTRICULAR PREMATURE COMPLEX EKG Impression: INTERPOLATED VENTRICULAR PREMATURE COMPLEX EKG Impression: LEFT ANTERIOR FASCICULAR BLOCK Electronically Signed By: Miracle Sher 02-Dec-2016 15:10:16
--- NOTE | 2016-12-02 11:24 | PDINTPN ---
Recreation Facility Manager Progress Note Assessment/Plan: Assessment: I had a long discussion with patient's sister, Ena, his medical power of corporate associate attorney. It is her wish, the given his poor prognosis, as well as the fact that he is a do not resuscitate and was very clear on this when it was established last month, that all support be withdrawn and patient be made comfortable. I agree with this and will abide by her wishes. Plan: Withdrawal of support and comfort care Objective: Vital Signs Temp Pulse Resp BP Pulse Ox 118 H 16 129/96 H 100 12/02/16 11:13 12/02/16 11:13 12/02/16 11:13 12/02/16 11:13 PT 13.7 SEC (12.0-15.0) 12/02/16 07:41 INR 1.06 (0.83-1.16) 12/02/16 07:41 ICD10 Worksheet Patient Problems: Problems Problem Status Onset Atrial fibrillation Acute Cardiopulmonary arrest Acute Hypotension Acute Acidosis Acute Acute bronchitis Acute Acute exacerbation of congestive heart failure Acute Acute respiratory failure Acute CHF (congestive heart failure) Acute COPD (chronic obstructive pulmonary disease) with acute bronchitis Acute COPD exacerbation Acute Chronic Disease Mgmt/Transitional Care Acute Chronic obstructive pulmonary disease with acute exacerbation Acute Dehydration Acute Elevated troponin Acute Hypercapnic respiratory failure Acute Hypothermia Acute Hypoxia Acute Palliative care encounter Acute Respiratory distress Acute Sepsis Acute Septic shock Acute Tobacco abuse Acute
[2016-12-02] MEDS: LORazepam 2 MG/ML INJ IVP PRN ×4 (11:40→18:08)
[2016-12-02] MEDS ORDERED: SUCCINYLCHOLINE CHLORIDE*ANESTHESIA ONLY*200 MG/10 ML SYR IVP ONE (11:56)
[2016-12-02] MEDS ORDERED: ETOMIDATE 40 MG/20 ML INJ ONE (11:56)
[2016-12-02] MEDS ORDERED: KETAMINE 100 MG/10 ML SYR ONE ×2 (11:56)
[2016-12-02] MEDS ORDERED: PHENYLEPHRINE HCL 100 MCG/ML SYR IVP ONE (12:36)
[2016-12-02 14:05] VITALS: BP 79/35
--- NOTE | 2016-12-02 15:17 | GHP ---
[f rep st] HISTORY AND PHYSICAL DATE OF ADMISSION: 12/02/2016 CHIEF COMPLAINT: Post cardiac arrest. HISTORY: The patient is a 56-year-old male well known to our hospital for frequent admissions for C OPD exacerbation. He is frequently hypercarbic and requires BiPAP therapy. He has schizophrenia an d a longstanding history of oxygen noncompliance at home. He continues to smoke. His most recent h ospitalization was 1 month ago, at which time home BiPAP was recommended, and he refused. He refuse d alf facility. He wished to return home, continue to smoke, and live in his trailer. Palliative Care saw him during that hospitalization and he understood the risk of refusing oxygen an d BiPAP, understanding that he is likely to soon. He was clear about not wanting resuscitation or intubation. This was coordinated with his sister. This morning, he was found on the floor by his roommate unconscious and unresponsive. 911 was monzon d and reported in the field the initial rhythm was VFib and CPR was performed. With oxygen administ ration, he went into rapid AFib and stabilized. Upon arriving to the emergency room, he was emergen tly intubated. A central line was placed and they prepared for HACA as he was unresponsive post car diac arrest. PAST MEDICAL HISTORY: 1. End-stage COPD, 4 L baseline. 2. Schizophrenia. 3. Pulmonary hypertension. 4. Congestive heart failure secondary to diastolic dysfunction. 5. Longstanding noncompliance. 6. Diabetes type 2. 7. Hypertension. 8. Cirrhosis. MEDICATIONS: Please see computer record for full detailed list. ALLERGIES: No known drug allergies. SOCIAL HISTORY: He continues to smoke. No alcohol. He lives in a trailer with a roommate. CODE STATUS: Noted to be DNR per chart review. REVIEW OF SYSTEMS: Complete review of systems unobtainable due to patient's intubated status. FAMILY HISTORY: Unobtainable. PHYSICAL EXAMINATION: GENERAL: Well-developed, well-nourished male in no acute distress. VITAL SI GNS: Temperature 35.6, pulse 87, blood pressure 117/89, satting 95% on the ventilator. EYES: Norm al conjunctivae. Pupils equal, round, and react to light. ENT: Normal ears and nose. Oropharynx endotracheally intubated. NECK: Trachea midline. No thyromegaly. CHEST: Normal respiratory effo rt. LUNGS: Decreased breath sounds bilaterally. Minimal wheeze. CARDIOVASCULAR SYSTEM: Regular r hythm. No murmur. No lower extremity edema. ABDOMEN: Soft, nontender. No hepatosplenomegaly. S KIN: Warm, dry, intact. No rash. MUSCULOSKELETAL: No cyanosis or clubbing. Unable to assess str ength or sensation due to patient's unresponsive status. He is intubated, not sedated, but minimall y responsive, was pulling a little bit at lines and tubes, but otherwise not following commands. LABORATORY DATA: White count 6.11, hematocrit 44.9, platelets 152. Sodium 143, potassium 4.1, chlo ride 87, bicarbonate 31, BUN 15, creatinine 1.0, glucose 207. Troponin 0.05. BNP is 4320. Chest x-ray is negative. Head CT is negative. EKG reviewed by me. My personal interpretation is a trial fibrillation with right bundle branch block. ASSESSMENT/PLAN: 1. Cardiac arrest. Upon initial EMS arrival, he was in cardiac arrest, but rapidly had return of s pontaneous circulation once oxygen was administered. I do suspect he had a hypoxic-induced cardiac arrest due to his noncompliance. We were in the process of initiating HACA upon initial arrival to the ICU, when subsequent chart review did reveal a palliative care consultation in the computer from last month where it clearly was stated patient desired DNR. 2. Acute respiratory failure. I suspect this is due to oxygen noncompliance, although he may have an element of chronic obstructive pulmonary disease exacerbation. 3. Atrial fibrillation. 4. Schizophrenia with longstanding noncompliance issues. 5. Diabetes type 2. 6. Ongoing tobacco abuse. I extensively coordinated this patient's care with Dr. Sher in transfer from the ER to ICU un dejah full-code status. We were initiating the HACA protocol. He was mostly unresponsive after cardi ac arrest. Subsequent chart review, however, revealed the palliative care consultation from 1 month ago where it is well documented that the patient understood he would likely soon due to his non compliance, but did desire DNR, and continued to refuse home BiPAP therapy and alf facil ity. It has been known that he does not always wear his oxygen and continues to smoke. His sister is his power of command post craftsman and is aware of his wishes. We subsequently contacted his sister, [email or web address] per documentation by Dr. Espino. She did agree that DNR was his wishes and requested withdrawa l of aggressive support. Dr. Espino extubated the patient and this patient is now on comfort measur es and this is anticipated to be a terminal event. Critical care time spent is 45 minutes. /[id number]/MODL
[2016-12-02 15:55] VITALS: PULSE 117; RESP 18; TEMP 99; O2SAT 20
--- NOTE | 2016-12-02 17:22 | GCON ---
[f rep st] CONSULTATION STRIPPING SHOVEL OPERATOR NOTE DATE OF CONSULTATION: 12/02/2016 REASON FOR ADMISSION: Status post cardiopulmonary arrest. HISTORY OF PRESENT ILLNESS: This patient is a 56-year-old white male with a very extensive past med ical history, including schizophrenia, hypertension, severe oxygen-dependent chronic obstructive pul monary disease, diastolic congestive heart failure, hypertension, and cirrhosis. He apparently call ed 911 earlier today complaining of breathlessness. He was found down in his home and was subsequen tly brought to the emergency room, where he was intubated and placed on mechanical ventilation. He has also begun on HOCA protocol. Currently he is obtunded, in a coma, on mechanical ventilation. A ll history is gleaned from the medical record. Apparently, he is a do not resuscitate from a [facility] consult last admission, which was in October of this year. PAST MEDICAL HISTORY: Again, significant for diastolic heart failure, chronic obstructive pulmonary disease, hypertension, schizophrenia, cirrhosis [id number] diabetes. ALLERGIES: None known to medications. SOCIAL HISTORY: Previous heavy smoker. Unknown smoking history currently. No significant alcohol use. MEDICATIONS: Previously, included Tylenol, albuterol, aspirin, Symbicort, Lasix, lisinopril, metfor min, prednisone and tiotropium. PHYSICAL EXAMINATION: VITAL SIGNS: Blood pressure is 117/89, pulse 75, respirations 16, he is afeb rile, oxygen saturation is 100% on mechanical ventilation. GENERAL: He is a thin 56-year-old white male who is in a coma and on mechanical ventilation. HEENT: Eyes are weakly reactive to light. T hroat: Endotracheal tube is in good position. NECK: Supple. No cervical adenopathy. HEART: Reg ular rate and rhythm, with a 2/6 systolic murmur at the left sternal border without radiation. LUNG S: Diminished breath sounds and a prolongation of the expiratory phase, but there is no wheeze. AB DOMEN: Soft, nontender. Bowel sounds are present. EXTREMITIES: No clubbing, cyanosis, or edema. LABORATORIES: White count 6.1, hemoglobin 12, hematocrit 44, platelet count is 152, MCV is elevated at 105. INR is 1.06. Sodium is 142, potassium 3.9, chloride 83, CO2 is 31, BUN is 16, creatinine 1, glucose is 207. Urinalysis with pH of 7, specific gravity 1.017, 3+ protein, 50-182 WBCs and RBC s, 1+ bacteria. Urine drug screen is non-negative for cocaine. IMAGING: Chest x-ray shows hyperinflated lungs. Endotracheal tube and central lines are in good po sition. CT scan of the head shows no acute intracranial findings. IMPRESSION: 1. Status post cardiac arrest, likely a pulmonary cause. 2. Chronic obstructive pulmonary disease with acute exacerbation. 3. Acute respiratory failure, stable on mechanical ventilation. 4. Noninsulin dependent diabetes. 5. Hypertension. 6. History of cirrhosis. 7. Schizophrenia. 8. The patient is a do not resuscitate. RECOMMENDATIONS: 1. Will continue mechanical ventilation for now. 2. Will hold HOCA protocol at this time. 3. Will discuss case with Palliative Care. 4. Will try to get in touch with the patient's sister who is an MD POA. Thank you very much. /[id number]/MODL
== END 2016-12-02 21:44 | disposition expired | DRG 208 ==
LOC: EDUNIT# → F2N 10:10
PROVIDERS: ADMIT Internal Medicine; ATTEND Internal Medicine
DX: J44.1 Chronic obstructive pulmonary disease with (acute) exacerbation (principal); J96.90 Respiratory failure, unspecified, unspecified whether with hypoxia or hypercapnia; I46.9 Cardiac arrest, cause unspecified; I11.0 Hypertensive heart disease with heart failure; I50.30 Unspecified diastolic (congestive) heart failure; E11.9 Type 2 diabetes mellitus without complications; I27.2 Other secondary pulmonary hypertension; Z51.5 Encounter for palliative care; Z66 Do not resuscitate; Z72.0 Tobacco use; Z91.19 Patient's noncompliance with other medical treatment and regimen
CPT/HCPCS: 80305; 82947-QW; 96374; G0480; J0330; J1265; J2060; J2370; J2704